=== PATIENT | male | born 1975 | race Caucasian/White ===

== ENCOUNTER 2023-08-03 12:19 | Emergency (ER) | payer MEDICARE, SELFPAY ==
[2023-08-03 12:23] VITALS: BP 144/94
[2023-08-03 12:36] VITALS: BP 141/98
[2023-08-03 12:37] VITALS: BP 141/99
[2023-08-03 13:01] LABS: % Basophils 0.6 % (0-2); % Eosinophils 2.1 % (0-6); % Immature Granulocytes 0.1 % (0-0.5); % Lymphocytes 38.5 % (20.5-51.1); % Monocytes 7.2 % (1.7-9.3); % Neutrophils 51.5 % (42.2-75.2); Absolute Basophils 0.1 10^3/uL (0-0.2); Absolute Eosinophils 0.2 10^3/uL (0-0.7); Absolute Lymphocytes 3.2 10^3/uL (1.2-3.4); Absolute Monocytes 0.6 10^3/uL (0.1-0.6); Absolute Neutrophils 4.2 10^3/uL (1.4-6.5); Hemoglobin 16.4 g/dL (13.0-18.0); Mean Corp Hgb Conc. 34.2 g/dL (33.0-37.0); Mean Corpuscular Hgb 30.6 pg (27.0-31.0); Mean Corpuscular Volume 89.6 fL (80.0-94.0); Mean Platelet Volume 8.8 fL (7.4-10.4); Nucleated Red Blood Cells % 0 % (-); Platelet Count 235 10^3/uL (130-400); Red Blood Cell Count 5.36 10^6/uL (4.70-6.10); Red Cell Dist. Width 13.2 % (11.5-14.5); White Blood Cell Count 8.2 10^3/uL (4.8-10.8)
[2023-08-03 13:16] LABS: ALT (SGPT) 33 U/L (0-50); AST (SGOT) 32 U/L (17-59); Albumin 3.8 g/dl (3.5-5.0); Alkaline Phosphatase 59 U/L (38-126); Blood Urea Nitrogen 10 mg/dl (9-20); Calcium 9.8 mg/dl (8.4-10.2); Carbon Dioxide 27 mmol/L (22-30); Chloride 97 mmol/L (98-107); Glucose 102 mg/dl (70-99); Potassium 4.8 mmol/L (3.5-5.1); Sodium 133 mmol/L (135-145); Total Protein 6.6 g/dl (6.3-8.2); eGFR > 60.00
--- NOTE | 2023-08-03 13:35 | ED.GENMED ---
History of Present Illness
General
Chief Complaint: Dizziness
Time Seen by Provider: 08/03/23 12:40
Travel History
Have you had any contact with someone who has COVID-19?: No
Do you have any symptoms of coronavirus? Fever > 100 degrees, chills, cough, shortness of breath, sore throat, loss of taste or smell, muscle aches, or headache?: No
History of Present Illness
History of Present Illness:
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 Both episodes occurred after getting
up out of bed, lasted mere minutes before resolving. He did have a fall today as a result of the dizziness and hit his head on the bathtub. Denies any current symptoms. Denies any headache, nausea, vomiting, vision changes, or neck pain
Review of Systems
Review of Systems
Allergies reviewed?: Yes
All Other Systems: ROS reviewed and negative except as documented in HPI and ROS
Phy Exam
Physical Exam
Physical Exam:
GEN: Well appearing, NAD, WDWN
HEENT: Oral mucosa moist, no scleral icterus, no nasal congestion
Cardiac: Regular rate
Lung: No respiratory distress, no tachypnea
MSK: No gross deformity or injuries
Skin: Good color, no pallor or jaundice, no rashes
Neuro: AO x3; CN II-XII grossly intact. BUE strength 5/5 in all huber, sensation intact and symmetric. BLE strength 5/5 in all huber, sensation intact and symmetric. No nystagmus visualized
Psych: Calm, cooperative
Course
Orders/Labs/Results
Orders:
Orders
08/03/23 12:44
Complete Blood Count/With Diff Urgent
Comprehensive Metabolic Panel Urgent
08/03/23 12:55
CT Head W/o Iv Contrast Urgent
Comment:
Reason For Exam: dizziness, fall w/ head trauma
Abnormal Lab Results
08/03/23
12:44
Sodium 133 L mmol/L
(135-145)
Chloride 97 L mmol/L
(98-107)
Creatinine 0.6 L mg/dL
(0.7-1.3)
Glucose 102 H mg/dl
(70-99)
08/03/23 12:44
08/03/23 12:44
Vital Signs
Initial and Last Documented VS:
Initial Vital Signs
Temp Pulse Resp BP Pulse Ox
97.9 F 83 18 144/94 95
08/03/23 12:23 08/03/23 12:23 08/03/23 12:23 08/03/23 12:23 08/03/23 12:23
Last Documented Vital Signs
Temp Pulse Resp BP Pulse Ox
97.9 F 78 14 126/96 95
08/03/23 12:23 08/03/23 14:00 08/03/23 14:00 08/03/23 14:00 08/03/23 12:36
MDM/Problems Addressed
MDM/Problems Addressed:
CT of the head was obtained due to the patient's head trauma, this showed no acute cranial abnormalities. Labs are reassuring. I did ambulate the patient and attempted to reproduce his vertigo with rapid head movements and this did not provide any
further symptoms. Likely benign vertigo, discussed supportive care
*Critical Care Note
Total Time (30-74mins, 75-104mins- exclusive of procedures): Not Applicable
ED Attending Note
-
Portions of this chart may have been created with voice recognition software.� Occasional wrong word or��sound alike� substitutions may have occurred due to the inherent limitations of voice recognition software.
Discharge Plan
Departure
Patient Disposition: Home (Routine Discharge)
Date of Disposition: 08/03/23
Time of Disposition: 14:41
Patient with high blood pressure during this ER visit?: No
Discharge Problem:
Vertigo
Instructions: Vertigo (a Type of Dizziness) (DC)
Prescriptions:
New
meclizine 25 mg tablet
25 mg PO TID PRN (Reason: dizziness) Qty: 20 0RF
Referrals:
Eileen Barry PA [Family Provider] -
Interventions
Interventions:
*Risk Screen - Suicide Last Done: 08/03/23 12:29
*General Assessment Last Done: 08/03/23 12:29
*Neglect/Abuse Screening Last Done: 08/03/23 12:29
ED- Fall Risk Assessment Last Done: 08/03/23 12:36
*ED COVID-19 Vaccine History Last Done: 08/03/23 12:36
*Nursing Disposition Last Done: 08/03/23 14:57
ED- Cardiac Assessment Last Done: 08/03/23 12:36
ED- Neurological Assessment Last Done: 08/03/23 12:36
ED-Skin Assessment Last Done: 08/03/23 12:36
Discharge Date and Time
Discharge Date/Time: 08/03/23 14:59
[2023-08-03 14:00] VITALS: BP 126/96
== END 2023-08-03 14:59 | disposition home or self-care (01) ==
LOC: EMR 12:19
PROVIDERS: Emergency Medicine; EMERGENCY PHYSICIAN Student in an Organized Health Care Education/Training Program; FAMILY PHYSICIAN Physician Assistant Medical
DX: R42 Dizziness and giddiness (principal); S09.90XA Unspecified injury of head, initial encounter; W19.XXXA Unspecified fall, initial encounter; Q04.0 Congenital malformations of corpus callosum; G40.909 Epilepsy, unspecified, not intractable, without status epilepticus
CPT/HCPCS: 99284; 70450; 80053; 85025

== ENCOUNTER 2024-01-26 10:32 | Emergency (ER) | payer OTHER, SELFPAY ==
[2024-01-26 10:34] VITALS: BP 139/94
[2024-01-26 11:03] LABS: Hematocrit 46.8 % (39.0-52.0); Hemoglobin 16.3 g/dL (13.0-18.0); Mean Corp Hgb Conc. 34.8 g/dL (33.0-37.0); Mean Corpuscular Hgb 30.2 pg (27.0-31.0); Mean Corpuscular Volume 86.8 fL (80.0-94.0); Mean Platelet Volume 9.3 fL (7.4-10.4); Platelet Count 238 10^3/uL (130-400); Red Blood Cell Count 5.39 10^6/uL (4.70-6.10); Red Cell Dist. Width 13.4 % (11.5-14.5); White Blood Cell Count 8.2 10^3/uL (4.8-10.8)
--- NOTE | 2024-01-26 11:14 | ED.GENMED ---
History of Present Illness
General
Chief Complaint: Dizziness
Time Seen by Provider: 01/26/24 10:40
History of Present Illness
History of Present Illness:
48-year-old male with history of agenesis of the corpus callosum presents to the emergency department for evaluation of dizziness that resulted in a fall with a positive head strike. He denies any loss of consciousness. Reports posterior head
pain, denies vision changes, neck pain, or extremity paresthesias. Still feels lightheaded, denies nausea or vomiting.
Review of Systems
Review of Systems
Allergies reviewed?: Yes
All Other Systems: ROS reviewed and negative except as documented in HPI and ROS
Phy Exam
Physical Exam
Physical Exam:
GEN: Well appearing, NAD, WDWN
HEENT: Mild erythema to the posterior midline scalp with no hematoma or crepitus, oral mucosa moist, no scleral icterus, no nasal congestion
Cardiac: Regular rate
Lung: No respiratory distress, no tachypnea
MSK: No gross deformity or injuries
Skin: Good color, no pallor or jaundice, no rashes
Neuro: AO x3; CN II-XII grossly intact. BUE strength 5/5 in all huber, sensation intact and symmetric. BLE strength 5/5 in all huber, sensation intact and symmetric
Psych: Calm, cooperative
Course
Orders/Labs/Results
Orders:
Orders
01/26/24 10:39
Electrocardiogram (*1) Urgent
Reason for Study: Vertigo / Dizzy
EKG- Treatment ONCE
01/26/24 10:41
CT Head W/o Iv Contrast Urgent
Comment:
Reason For Exam: dizzy, fall w/ head strike
01/26/24 10:43
Basic Metabolic Panel Urgent
Complete Blood Count/No Diff Urgent
Abnormal Lab Results
01/26/24
10:43
Sodium 132 L mmol/L
(135-145)
Glucose 115 H mg/dl
(70-99)
01/26/24 10:43
01/26/24 10:43
Vital Signs
Initial and Last Documented VS:
Initial Vital Signs
Temp Pulse Resp BP Pulse Ox
98.5 F 78 18 139/94 100
01/26/24 10:34 01/26/24 10:34 01/26/24 10:34 01/26/24 10:34 01/26/24 10:34
Last Documented Vital Signs
Temp Pulse Resp BP Pulse Ox
98.5 F 78 18 139/94 100
01/26/24 10:34 01/26/24 10:34 01/26/24 10:34 01/26/24 10:34 01/26/24 10:34
MDM/Problems Addressed
MDM/Problems Addressed:
Workup is unremarkable. Patient is clinically stable with no focal neurologic deficits
*Critical Care Note
Total Time (30-74mins, 75-104mins- exclusive of procedures): Not Applicable
ED Attending Note
-
Portions of this chart may have been created with voice recognition software.� Occasional wrong word or��sound alike� substitutions may have occurred due to the inherent limitations of voice recognition software.
Discharge Plan
Departure
Patient Disposition: Home (Routine Discharge)
Date of Disposition: 01/26/24
Time of Disposition: 11:52
Patient with high blood pressure during this ER visit?: No
Discharge Problem:
CHI (closed head injury)
Instructions: Head injury in adults
Prescriptions:
No Action
meclizine 25 mg tablet
25 mg PO TID PRN (Reason: dizziness) Qty: 20 0RF
Referrals:
Eileen Barry PA [Family Provider] -
Interventions
Interventions:
*Risk Screen - Suicide Last Done: 01/26/24 10:34
*General Assessment Last Done: 01/26/24 10:34
*Neglect/Abuse Screening Last Done: 01/26/24 10:34
*Nursing Disposition Last Done: 01/26/24 12:23
ED- Neurological Assessment Last Done: 01/26/24 10:39
ED Swallowing Screen Last Done: 01/26/24 12:16
Discharge Date and Time
Discharge Date/Time: 01/26/24 12:23
Print Language: ROMANSH
[2024-01-26 11:21] LABS: Blood Urea Nitrogen 11 mg/dl (9-20); Calcium 9.6 mg/dl (8.4-10.2); Carbon Dioxide 23 mmol/L (22-30); Chloride 99 mmol/L (98-107); Glucose 115 mg/dl (70-99); Potassium 4.4 mmol/L (3.5-5.1); Sodium 132 mmol/L (135-145); eGFR > 60.00
== END 2024-01-26 12:23 | disposition home or self-care (01) ==
LOC: EMR 10:32
PROVIDERS: Physician Assistant; EMERGENCY PHYSICIAN Emergency Medicine; FAMILY PHYSICIAN Physician Assistant Medical
DX: S09.90XA Unspecified injury of head, initial encounter (principal); W19.XXXA Unspecified fall, initial encounter
CPT/HCPCS: 99285; 70450; 80048; 85027; 93005

== ENCOUNTER → 2024-08-27 07:29 | Outpatient (REF) | payer OTHER, SELFPAY ==
--- NOTE | 2024-08-27 11:05 | EEG.RPT ---
Electroencephalogram Report
Recording
Date of EE08/27/24
Type of EEG: Routine
Length of EEG recordin minutes
Done with Video Recording: Yes
Patient Status: Outpatient
Recording Conditions: Awake and Drowsy
Hyperventilation Performed: No
Photic Stimulation Performed: Yes
Report
GREATER THAN 1 HOUR EEG REPORT
GREATER THAN 1 HOUR EEG INTERPRETATION:
Moderately-severely abnormal EEG for age due to frequent 2/s medium amplitude spike and wave discharges
CLINICAL CORRELATION:
This study was suggestive of a high-risk for subclinical seizures, generalized in nature. Clinical correlation is advised.
METHODS:
A 21 channel digitized electroencephalogram (EEG) was performed in the [facility]. The 10/20 international system of electrode placement was used with ECG and lateral/vertical eye movements recorded. Video was recorded.
Persyst quantitative EEG analysis performed.
ELECTROENCEPHALOGRAPHER IMPRESSION(S):
Quality of study: Good
Background
Background
Amplitude: Unremarkable
Anterior-Posterior Organization: Good
Maximum: Alpha
Asymmetry: None
Sleep
Drowsiness demonstrated by attenuation of the background rhythm
Hyperventilation
Increased the frequency of spike and-wave discharges listed below.
Photic Stimulation
Failed to activate the record
ECG
Normal sinus rhythm
ABNORMAL EEG Activity
Seen frequently arhythmically were medium-high amplitude left central spikes and occasional afterward slow wave discharges, generalizing, lasting for 2 second intervals.
== END ==
LOC: EEG 07:29
PROVIDERS: ATTENDING PHYSICIAN Psychiatry & Neurology Neurology; FAMILY PHYSICIAN Physician Assistant Medical
DX: G40.309 Generalized idiopathic epilepsy and epileptic syndromes, not intractable, without status epilepticus (principal)
CPT/HCPCS: 95813

== ENCOUNTER 2025-01-22 10:54 | Emergency (ER) | payer OTHER, SELFPAY ==
[2025-01-22 10:56] VITALS: BP 149/97
[2025-01-22 11:04] LABS: Hematocrit 43.8 % (39.0-52.0); Hemoglobin 15.3 g/dL (13.0-18.0); Mean Corp Hgb Conc. 34.9 g/dL (33.0-37.0); Mean Corpuscular Volume 85.7 fL (80.0-94.0); Nucleated Red Blood Cells % 0 % (-); Platelet Count 235 10^3/uL (130-400); Red Cell Dist. Width 13.0 % (11.5-14.5)
[2025-01-22 11:28] LABS: ALT (SGPT) 22 U/L (0-50); AST (SGOT) 23 U/L (17-59); Albumin 4.0 g/dl (3.5-5.0); Alkaline Phosphatase 43 U/L (38-126); Blood Urea Nitrogen 10 mg/dl (9-20); Calcium 9.1 mg/dl (8.4-10.2); Carbon Dioxide 22 mmol/L (22-30); Chloride 99 mmol/L (98-107); Glucose 104 mg/dl (70-99); Potassium 4.1 mmol/L (3.5-5.1); Sodium 127 mmol/L (135-145); Total Protein 7.0 g/dl (6.3-8.2); eGFR > 60.00
[2025-01-22 12:00] VITALS: BP 140/97
[2025-01-22 13:01] VITALS: BP 135/95
--- NOTE | 2025-01-22 13:37 | ED.GENMED ---
History of Present Illness
General
Chief Complaint: Seizure
Source: patient and family
Exam Limitations: none
Time Seen by Provider: 01/22/25 13:06
Nursing documentation reviewed up to this point in time: agreed with
History of Present Illness
History of Present Illness:
see MDM
Phy Exam
Physical Exam
Physical Exam:
GENERAL: Alert , in no apparent distress
HEAD: NCAT
EYE: pupils equal and reactive, some nystagmus; strabismus
NECK: Supple,full rom, nontender
ENT: o/p clr, mmm.
CARDIAC: Regular rate and rhythm . no edema
LUNGS: Clear breath sounds bilaterally, no acute respiratory distress, no wheezes/rales/rhonchi
ABDOMEN: Soft, without focal tenderness, no r/g, no cvat
NEUROLOGICAL: Alert and orientedx 4, cn intact, no facial asymmetry, 5/5 strength in UE/LE, sensation intact, romberg neg, ambulates without assistance, neg pronator drift
SKIN: Warm and dry, skin intact.
MUSCULOSKELETAL: No edema, well perfused.
PSYCH: Normal and appropriate interaction.
Course
Orders/Labs/Results
Orders:
Orders
01/22/25 10:57
CMP [Comprehensive Metabolic Panel] Urgent
Complete Blood Count/With Diff Urgent
01/22/25 14:23
Lamotrigine [Lamictal] 50 mg PO NOW STA
Abnormal Lab Results
01/22/25
10:57
Absolute Monos (auto) 0.7 H 10^3/uL
(0.1-0.6)
Sodium 127 L mmol/L
(135-145)
Creatinine 0.6 L mg/dL
(0.7-1.3)
Glucose 104 H mg/dl
(70-99)
01/22/25 10:57
01/22/25 10:57
Vital Signs
Initial and Last Documented VS:
Initial Vital Signs
Temp Pulse Resp BP Pulse Ox
36.7 C 84 18 149/97 98
01/22/25 10:56 01/22/25 10:56 01/22/25 10:56 01/22/25 10:56 01/22/25 10:56
Last Documented Vital Signs
Temp Pulse Resp BP Pulse Ox
36.7 C 85 15 126/98 98
01/22/25 10:56 01/22/25 14:58 01/22/25 13:21 01/22/25 14:50 01/22/25 14:58
MDM/Problems Addressed
Differential Diagnosis Includes:
see MDM
MDM/Problems Addressed:
Note:
CHIEF COMPLAINT(S)
The patient experienced an aura with right arm shaking suggestive of a seizure.
HISTORY OF PRESENT ILLNESS
The patient 49 y/o M with h/o epilepsy and corpus callosum agenesis and is followed by Dr. Mccrary here for aura and possible mild seizure activity today just [employer];
the patient describes experiencing an aura and subsequent shaking of the right arm. He reports that he usually recognizes when a seizure is impending ('when he has aura, he shakes and he knows its coming').
. He did not fall or experience a full convulsive event. it is very hot outside and mother believes this is a trigger. Additionally, he experienced a more significant seizure 2 days ago, which was his typical tonic clonic 'yelling' seizure,
lasting 1-2 min without prolonged post ictal state.
Despite having a prior significant seizure on Monday, the patient states he usually does not seek medical care after each seizure. Instead, his visit today was prompted by having two episodes close to each other, as he normally experiences seizures
a couple of times per year. He reports no recent fever, cough, or symptoms suggestive of an underlying acute illness. The patient had taken all prescribed medications, including lamotrigine and lacosamide, without missing doses, and he maintains
that he feels well presently.
pt has h/o SIADH and hyponatremia which he did not dislcose;
ADDITIONAL HISTORY OBTAINED FROM SOURCES OTHER THAN THE PATIENT
The patients mother provided additional context regarding his history of seizures and noted no recent head injuries or changes in the seizure pattern until the recent cluster of episodes.
CHRONIC MEDICAL CONDITIONS SIGNIFICANTLY AFFECTING CARE
The patient has a known history of epilepsy, managed with the antiepileptic medications lamotrigine and lacosamide.
REVIEW OF SYSTEMS
- Neurological: Aura with right arm shaking, no loss of consciousness during the recent episode, history of seizures.
- General: Reports feeling good currently, no recent fever or general malaise.
- Head: No recent head injuries, no headache reported.
- Medication Adherence: Confirms consistent use of prescribed antiepileptic medications without missed doses.
PHYSICAL EXAM
- General Appearance: Alert and oriented, no acute distress observed.
- Neurological: No current seizure activity, follows commands, and communicates appropriately.
Nursing notes reviewed and vital signs reviewed.
PROBLEM LIST
Acute:
- Recent aura with seizure-like activity.
Chronic:
- Epilepsy managed with lamotrigine and lacosamide.
PLAN
- Contact the neurologist to discuss potential adjustment of antiepileptic medication dosages.
DIFFERENTIAL DIAGNOSIS
The Differential Diagnosis includes, in no particular order and is not limited to:
1. Epileptic seizure
2. Focal seizure
3. Medication-related side effects or non-compliance
4. Heat-related exacerbation
5. Pseudoseizure
6. Anxiety or panic attacks manifesting as neurologic symptoms
7. Syncope with convulsive episodes
8. Cerebrovascular event
9. Neurological disorder progression
10. Other metabolic causes impacting seizure threshold (e.g., electrolyte imbalance)
hyponatremia
49 y/o M
epilepsy
followed by dr demetra ruiz
on lacosamine and lamictal
here with feeling aura today while at work
had seizure 2 days ago
these are unusual to have back to back prompting mother to bring him in
he feels well now
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
sodium 127
previous sodiums low 130s
no known SAIDH according to mother, no fluid restriction
d/w dr. mccrary who felt that this could be related to medication side effec
trecommended increasing the 50 mg lamictal to total 250 mg rather than 200mg and continuting the lacosamine
ptwill fu with pcp next week regarding sodium
d/w ed attending
*Pulse Oximetry
SaO2: 96
Oxygen Mode of Delivery: Room air
Patient hypoxic: no (98)
*Critical Care Note
Total Time (30-74mins, 75-104mins- exclusive of procedures): Not Applicable
ED Attending Note
-
Portions of this chart may have been created with voice recognition software.� Occasional wrong word or��sound alike� substitutions may have occurred due to the inherent limitations of voice recognition software.
Discharge Plan
Departure
Patient Disposition: Home (Routine Discharge)
Date of Disposition: 01/22/25
Time of Disposition: 14:45
Patient with high blood pressure during this ER visit?: No
Condition: Fair
Covid-19: Not Applicable
Discharge Problem:
Seizure, Chronic hyponatremia
Instructions: Seizures, Adult (DC)
Prescriptions:
No Action
meclizine 25 mg tablet
25 mg PO TID PRN (Reason: dizziness) Qty: 20 0RF
Referrals:
UNKNOWN - PT NOT,INTERVIEWE [Family Provider]
Activity Restrictions/Additional Instructions:
Dr. Mccrary will send a new prescription for 50 mg of lamotrigine into the pharmacy. This will be in addition to his already medications that he is prescribed. So give him this extra dose as well. It should be 250 of the lamotrigine
His sodium was mildly low at 127. Make sure to have his sodium repeated next week by his family doctor. It could be a side effect from his medications or from drinking too much water. Return for any worsening symptoms like repeated seizures,
weakness, fatigue, change in mental status, etc.
Interventions
Interventions:
*Risk Screen - Suicide Last Done: 01/22/25 11:00
*General Assessment Last Done: 01/22/25 11:00
*Neglect/Abuse Screening Last Done: 01/22/25 11:00
*ED- Fall Risk Assessment Last Done: 01/22/25 11:00
*ED COVID-19 Vaccine History Last Done: 01/22/25 11:00
*Nursing Disposition Last Done: 01/22/25 15:00
ED- Cardiac Assessment Last Done: 01/22/25 11:03
ED- Neurological Assessment Last Done: 01/22/25 11:03
ED- Pulmonary Assessment Last Done: 01/22/25 11:03
Discharge Date and Time
Discharge Date/Time: 01/22/25 15:00
Print Language: KHMER
[2025-01-22] MEDS: LAMICTAL 50 MG PO (14:48)
[2025-01-22 14:50] VITALS: BP 126/98
== END 2025-01-22 15:00 | disposition home or self-care (01) ==
LOC: EMR 10:54
PROVIDERS: Physician Assistant; EMERGENCY PHYSICIAN Emergency Medicine
DX: G40.909 Epilepsy, unspecified, not intractable, without status epilepticus (principal); Q04.0 Congenital malformations of corpus callosum; E87.1 Hypo-osmolality and hyponatremia; Z79.899 Other long term (current) drug therapy
CPT/HCPCS: 99283; 80053; 85025

== ENCOUNTER 2025-01-25 09:50 | Emergency (ER) | payer OTHER, SELFPAY ==
[2025-01-25 09:55] VITALS: BP 122/91
--- NOTE | 2025-01-25 10:18 | ED.GENMED ---
History of Present Illness
General
Chief Complaint: Abdominal Symptoms
Source: patient and family
Exam Limitations: none
Time Seen by Provider: 01/25/25 10:06
Nursing documentation reviewed up to this point in time: agreed with
History of Present Illness
History of Present Illness:
49 y/o M with h/o epilepsy and corpus callosum agenesis and is followed by Dr. Heller, GRICELDA w hyponatremia, here for vomiting and dehydration. These symptoms began last night, with the patient experiencing continuous vomiting throughout the night.
The patient has not had diarrhea, fever, or abdominal pain, and is been experiencing dry heaving. The patient was here 3 days ago for seizure and found to be hyponatremic (Na 127). Had his Lamotrigine increased from 200 mg to 250 mg daily.
Past History
Past History
ED Past Medical History: Other (Seizures, chronic hyponatremia, agenesis of corpus callosum) and Other (SIADH)
Social History
Tobacco: Non-smoker
Alcohol: None
Personal: Single
Living: with family
Review of Systems
Review of Systems
Allergies reviewed?: Yes
All Other Systems: ROS reviewed and negative except as documented in HPI and ROS
Constitutional: Reports chills
Respiratory: Denies trouble breathing
Cardiac: Denies chest pain
ABD/GI: Reports nausea and vomiting; Denies abdominal pain or diarrhea
Musculoskeletal: Reports no symptoms
Skin: Reports no symptoms
Phy Exam
Physical Exam
Physical Exam:
GENERAL: No acute distress. A&Ox3.
CONSTITUTIONAL: Afebrile.
EYES: clear, conjunctivae normal
ENMT: moist mucus membranes, Pharynx nl
RESPIRATORY: Regular respirations, nonlabored, lungs clear.
CARDIOVASCULAR: Regular rate and rhythm, no murmurs, no rubs.
GI: Soft, nontender, normal BS
MUSCULOSKELETAL: Moves with ease. Well perfused.
SKIN: Warm, dry, pink
PSYCH: Anxious mood and affect, body trembling versus chills. Well kept, interactive and appropriate
NEUROLOGIC: Awake, alert and oriented. No focal neurological deficits
Course
Orders/Labs/Results
Orders:
Orders
01/25/25 10:17
0.9% Sodium Chloride 1000 ml [Nss] 1,000 ml IV BOLUS
Ondansetron Injectable [Zofran] 4 mg IV NOW STA
01/25/25 10:53
Complete Blood Count/With Diff Urgent
Comprehensive Metabolic Panel Urgent
Lipase Urgent
Abnormal Lab Results
01/25/25
10:53
WBC 14.9 H 10^3/uL
(4.8-10.8)
Abs Immat Gran (auto) 0.1 H 10^3/uL
(0-0.05)
Absolute Neuts (auto) 13.2 H 10^3/uL
(1.4-6.5)
Absolute Lymphs (auto) 1.0 L 10^3/uL
(1.2-3.4)
Neutrophils % 88.4 H %
(42.2-75.2)
Lymphocytes % 7.0 L %
(20.5-51.1)
Sodium 131 L mmol/L
(135-145)
BUN 8 L mg/dl
(9-20)
Glucose 127 H mg/dl
(70-99)
01/25/25 10:53
01/25/25 10:53
Vital Signs
Initial and Last Documented VS:
Initial Vital Signs
Pulse Resp BP Pulse Ox
94 18 122/91 100
01/25/25 09:55 01/25/25 09:55 01/25/25 09:55 01/25/25 09:55
Last Documented Vital Signs
Temp Pulse Resp BP Pulse Ox
98.7 F 77 16 124/84 97
01/25/25 12:00 01/25/25 12:30 01/25/25 12:30 01/25/25 12:30 01/25/25 12:30
MDM/Problems Addressed
Differential Diagnosis Includes:
1. Viral gastroenteritis
2. Medication side effects (from increased lamotrigine)
3. Electrolyte imbalance
4. Dehydration
5. Anxiety or stress reaction
MDM/Problems Addressed:
49 y/o M with h/o epilepsy and corpus callosum agenesis and is followed by Dr. Heller, GRICELDA w hyponatremia, here for vomiting and dehydration. These symptoms began last night, with the patient experiencing continuous vomiting throughout the night.
The patient has not had diarrhea, fever, or abdominal pain, and is been experiencing dry heaving. The patient was here 3 days ago for seizure and found to be hyponatremic (Na 127). Had his Lamotrigine increased from 200 mg to 250 mg daily.
Brother and mother at bedside providing much of the information
CBC: WBC 14.9
CMP: Sodium 131, otherwise normal
Lipase 45
12:15 PM:
After Zofran and IV fluids, patient has had no further retching, he is tolerating p.o. fluids
He appears calm and says he feels much better.
Prescription for Zofran sent to his pharmacy
Instructed to have his blood work specifically WBC and sodium rechecked sometime this week through his PCP.
*Pulse Oximetry
SaO2: 100
Oxygen Mode of Delivery: Room air
Patient hypoxic: no
*Critical Care Note
Total Time (30-74mins, 75-104mins- exclusive of procedures): Not Applicable
ED Attending Note
-
Portions of this chart may have been created with voice recognition software.� Occasional wrong word or��sound alike� substitutions may have occurred due to the inherent limitations of voice recognition software.
Discharge Plan
Departure
Patient Disposition: Home (Routine Discharge)
Date of Disposition: 01/25/25
Time of Disposition: 12:10
Patient with high blood pressure during this ER visit?: No
Condition: Good
Discharge Problem:
Gastritis, Nausea & vomiting
Instructions: Nausea and Vomiting, Adult (DC), Gastritis - Discharge instructions
Prescriptions:
New
ondansetron 4 mg tablet,disintegrating
4 mg PO Q8H PRN (Reason: nausea and vomiting) 3 Days Qty: 10 0RF
No Action
meclizine 25 mg tablet
25 mg PO TID PRN (Reason: dizziness) Qty: 20 0RF
Referrals:
Eileen Barry PA [Family Provider, Family Practice] - Follow up in 2-3 days
Activity Restrictions/Additional Instructions:
As we discussed, stick with a bland diet over the next couple of days until your stomach feels better.
I sent a prescription to your pharmacy for Zofran to use as needed for nausea and vomiting
See your doctor or return here immediately if you continue to vomit despite using the Zofran or if you feel sicker in any way
You may drink 6 to 8 glasses of fluid a day
See your doctor in 2 to 3 days for repeat lab work because your white blood cell count was mildly elevated, most likely from the vomiting and the shaking but the white blood cells and your sodium should be rechecked also as it was slightly low at 131
Interventions
Interventions:
*Risk Screen - Suicide Last Done: 01/25/25 09:55
*General Assessment Last Done: 01/25/25 09:55
*Neglect/Abuse Screening Last Done: 01/25/25 09:55
*ED- Fall Risk Assessment Last Done: 01/25/25 10:57
*Nursing Disposition Last Done: 01/25/25 12:43
YL-Kjjpmg-Zirofjzafs Assessment Last Done: 01/25/25 10:35
Discharge Date and Time
Discharge Date/Time: 01/25/25 12:43
Print Language: [id number]
[2025-01-25] MEDS: NSS 1000 IV (10:54)
[2025-01-25] MEDS: ZOFRAN 4 MG IV (10:54)
[2025-01-25 10:56] VITALS: BMI 24.1
[2025-01-25 11:00] VITALS: BP 135/91
[2025-01-25 11:05] LABS: Hematocrit 45.1 % (39.0-52.0); Hemoglobin 15.5 g/dL (13.0-18.0); Mean Corp Hgb Conc. 34.4 g/dL (33.0-37.0); Mean Corpuscular Volume 86.9 fL (80.0-94.0); Nucleated Red Blood Cells % 0 % (-); Platelet Count 247 10^3/uL (130-400); Red Cell Dist. Width 13.1 % (11.5-14.5)
[2025-01-25 11:32] LABS: ALT (SGPT) 19 U/L (0-50); AST (SGOT) 23 U/L (17-59); Albumin 4.0 g/dl (3.5-5.0); Alkaline Phosphatase 45 U/L (38-126); Blood Urea Nitrogen 8 mg/dl (9-20); Calcium 9.5 mg/dl (8.4-10.2); Carbon Dioxide 24 mmol/L (22-30); Chloride 100 mmol/L (98-107); Estimated Creatinine Clearance 121 ml/min; Glucose 127 mg/dl (70-99); Lipase 45 U/L (23-300); Potassium 4.9 mmol/L (3.5-5.1); Sodium 131 mmol/L (135-145); Total Protein 7.0 g/dl (6.3-8.2); eGFR > 60.00
[2025-01-25 12:30] VITALS: BP 124/84
== END 2025-01-25 12:43 | disposition home or self-care (01) ==
LOC: EMR 09:50
PROVIDERS: Registered Nurse; EMERGENCY PHYSICIAN Emergency Medicine; FAMILY PHYSICIAN Physician Assistant Medical
DX: K29.70 Gastritis, unspecified, without bleeding (principal); R11.2 Nausea with vomiting, unspecified; G40.909 Epilepsy, unspecified, not intractable, without status epilepticus; Q04.0 Congenital malformations of corpus callosum
CPT/HCPCS: 99284; 96374; 96361; 80053; 83690; 85025

== ENCOUNTER 2025-01-26 14:18 | Inpatient (IN) | payer OTHER, SELFPAY ==
[2025-01-26] VITALS (18 sets, daily range): BP systolic 140–179; BP diastolic 81–109; BMI 24.8
--- NOTE | 2025-01-26 09:55 | ED.GENMED ---
History of Present Illness
General
Chief Complaint: Abdominal Symptoms
Source: patient
Time Seen by Provider: 01/26/25 09:47
History of Present Illness
History of Present Illness:
49-year-old male brought to the emergency room for nausea vomiting. Patient has medical history of seizures, agenesis of the corpus callosum. He has some developmental delay. Patient began having symptoms yesterday. Was seen in the emergency
room yesterday for symptoms. He felt better after IV fluids and Zofran. He was discharged home only to have symptoms return. Family states he seems very weak. He fell last night because he was so weak. Patient also complaining of dizziness like
the room is spinning. He has had a previous visit for vertigo. No headache. No abdominal pain per se just vomiting and nausea. Does have some baseline right-sided weakness.
Past History
Past History
ED Past Medical History: Other (Seizures, chronic hyponatremia, agenesis of corpus callosum) and Other (SIADH)
Social History
Tobacco: Non-smoker
Alcohol: None
Personal: Single
Living: with family
Phy Exam
Physical Exam
Physical Exam:
General: Awake, Alert, appears uncomfortable due to nausea
Vitals: Tachycardic
Head: Atraumatic
Eyes: Pupils equal, EOMI
Throat: Airway intact, no exudates, dry mucosa
Neck: Trachea midline
Lungs: Clear and equal b/l
Heart: Regular rate, no murmurs
Abd: Soft, Nontender, No pulsatile mass
Neuro: Baseline mild right arm and leg weakness, otherwise intact
Skin: Warm, dry, no rash
Extremities: pulses equal b/l, no edema
Course
Orders/Labs/Results
Orders:
Orders
01/26/25 09:54
0.9% Sodium Chloride 1000 ml [Nss] 1,000 ml IV BOLUS
Ondansetron Injectable [Zofran] 4 mg IV NOW STA
diazePAM [Valium Injection] 5 mg IV NOW STA
01/26/25 09:55
Electrocardiogram (*1) Urgent
Reason for Study: Abdominal Pain
EKG- Treatment ONCE
01/26/25 10:00
CT Head W/o Iv Contrast Urgent
Comment:
Reason For Exam: vertigo, confusion
01/26/25 10:04
Complete Blood Count/With Diff Urgent
Comprehensive Metabolic Panel Urgent
Lipase Urgent
Magnesium Urgent
01/26/25 13:55
Admit/Transfer Patient As Directed
Co-Sign Provider:
Level of Care: Inpatient admission
Assign to:: Medical/Surgical
Physician / Group: Hospitalist
Diagnosis: Possible seizure, dizziness
Reason for Hospitalization: possible seizure, dizziness
Expected length of stay greater than two midnights?: Yes
ELOS- Estimated Length of Stay in days: 3
I certify the patient meets the requirements for IP care: Yes
01/26/25 13:56
PRN Pain Medication Management As Directed
May give lesser potent ordered pain med per pt: Yes
preference::
Protocol:: Medication orders for pain may be administered in a
manner that supports deferring to patient preference
when the pt is:
- Requesting an ordered lesser potent pain medication.
Least to most potent pain medications are defined
as: acetaminophen < NSAID < tramadol < opioids
(morphine, oxycodone, hydromorphone).
- Requesting a lesser dose of the same medication IF
ORDERED.
- Requesting a less intrusive route of administration
if both routes are prescribed by the provider (PO <
IV).
01/26/25 13:57
Code Status As Directed
Resuscitation Status: Full Code
01/26/25 14:46
Acetaminophen [Tylenol] 650 mg PO Q4HPRN PRN
Meclizine [Antivert] 25 mg PO TIDPRN PRN dizziness
Ondansetron Orally Disint [Zofran Odt (Orally Disintegrating)] 4 mg PO Q8HPRN PRN nausea and vomiting
01/26/25 14:46
Case Management Consult ONCE
Case Management Consult: Discharge Planning
Comment: stroke/tia
DIETARY IP CONSULT Routine
Reason for Consult: stroke/TIA
NEUROLOGY CONSULT Urgent
Consulting Provider: Hardik Garcia
Was physician already notified: Yes
Reason for consult: stroke vs seizure vs vertigo - patient very dizzy
MR Brain Without Contrast Routine
Comment:
Reason For Exam: stroke/TIA
OK for patient to be off Cardiac Monitoring for MRI: Yes
Recent pill cam endoscopy?: No
Activity As Directed
Activity Level: With Assistance
NIH Stroke Scale As Directed
Directions: Per protocol
Comment: every shift and with any change in condition or mental status
Neurological Checks As Directed
Frequency: q4h
Additional Instructions:: q4h x 24h upon admission to the floor, then qshift & with any change in condition
and mental status
Pneumatic Compression Sleeves As Directed
Type: Knee high
Vital Signs As Directed
Frequency: Per unit guidelines
Ot Eval And Treat Routine
Pt Eval And Treat Routine
Treatment: eval gait
Activity Level: With Assistance
Speech Therapy Eval & Treat Routine
DX Deep Vein Thrombosis Video Routine
01/27/25 06:00
Cardiovascular Evaluation IN AM
02/01/25 13:57
Director Of Mechanical Engineering Routine
Abnormal Lab Results
01/26/25
10:04
Absolute Neuts (auto) 7.9 H 10^3/uL
(1.4-6.5)
Neutrophils % 81.4 H %
(42.2-75.2)
Lymphocytes % 13.9 L %
(20.5-51.1)
Sodium 129 L mmol/L
(135-145)
BUN 7 L mg/dl
(9-20)
Creatinine 0.5 L mg/dL
(0.7-1.3)
Glucose 122 H mg/dl
(70-99)
01/26/25 10:04
01/26/25 10:04
Vital Signs
Initial and Last Documented VS:
Initial Vital Signs
Temp Pulse Resp BP Pulse Ox
97.5 F 84 18 170/101 98
01/26/25 09:43 01/26/25 09:43 01/26/25 09:43 01/26/25 09:43 01/26/25 09:43
Last Documented Vital Signs
Temp Pulse Resp BP Pulse Ox
98.1 F 91 18 164/106 96
01/26/25 15:00 01/26/25 15:00 01/26/25 15:00 01/26/25 15:00 01/26/25 15:00
MDM/Problems Addressed
Differential Diagnosis Includes:
Dehydration, electrolyte abnormality, viral gastritis, vertigo from labyrinthitis versus BPPV versus ischemic event
MDM/Problems Addressed:
Patient brought to the emergency room due to persistent nausea vomiting. Patient did endorse feeling dizzy. Labs here are not particularly abnormal. His sodium is 129 but this would not explain any of his symptoms. CT of the head was obtained
which shows no acute abnormality. He persistently complained of dizziness suggesting that what he may be experiencing is acute vertigo. Concern for ischemic event as he is not improving with Valium and IV fluids and Zofran. Will hospitalize him
for further evaluation.
*Radiology
Radiology exam reviewed: radiology read reviewed
*Pulse Oximetry
SaO2: 97
Oxygen Mode of Delivery: Room air
Patient hypoxic: no
*EKG
Interpreted by ED Provider?: Yes
Interpretation: abnormal
Heart Rate: 105
Rate: tachycardiac
Rhythm: sinus tachycardia
Waterfall: normal axis
Interval: normal interval
QRS Pattern: normal QRS
Ischemia: no ischemia
*Asphalt Tamper Interpretation
Rate: tachycardiac
Interpretation: abnormal
Rhythm: sinus tachycardia
*Critical Care Note
Total Time (30-74mins, 75-104mins- exclusive of procedures): Not Applicable
ED Attending Note
-
Portions of this chart may have been created with voice recognition software.� Occasional wrong word or��sound alike� substitutions may have occurred due to the inherent limitations of voice recognition software.
Discharge Plan
Departure
Patient Disposition: Admit
Date of Disposition: 01/26/25
Time of Disposition: 12:45
Admit to: Med/Surg
Presentation/result/management discussed w/ accepting MD/DO: Hospitalist
Condition: Fair
Discharge Problem:
Vertigo, Nausea & vomiting, Ataxia
Interventions
Interventions:
*Risk Screen - Suicide Last Done: 01/26/25 09:43
*General Assessment Last Done: 01/26/25 09:43
*Neglect/Abuse Screening Last Done: 01/26/25 09:43
*ED- Fall Risk Assessment Last Done: 01/26/25 09:52
*ED COVID-19 Vaccine History Last Done: 01/26/25 09:52
*Nursing Disposition Last Done: 01/26/25 14:40
MP-Nryntp-Rspkkiuiec Assessment Last Done: 01/26/25 09:52
Discharge Date and Time
Discharge Date/Time: 01/26/25 14:43
[2025-01-26 10:11] LABS: Hematocrit 43.6 % (39.0-52.0); Hemoglobin 15.1 g/dL (13.0-18.0); Mean Corp Hgb Conc. 34.6 g/dL (33.0-37.0); Mean Corpuscular Volume 86.3 fL (80.0-94.0); Nucleated Red Blood Cells % 0 % (-); Platelet Count 250 10^3/uL (130-400); Red Cell Dist. Width 13.2 % (11.5-14.5)
[2025-01-26] MEDS: NSS 1000 IV (10:18)
[2025-01-26] MEDS: VALIUM INJECTION 5 MG IV (10:19)
[2025-01-26] MEDS: ZOFRAN 4 MG IV (10:19)
[2025-01-26 10:33] LABS: ALT (SGPT) 20 U/L (0-50); AST (SGOT) 23 U/L (17-59); Albumin 4.1 g/dl (3.5-5.0); Alkaline Phosphatase 45 U/L (38-126); Blood Urea Nitrogen 7 mg/dl (9-20); Calcium 9.4 mg/dl (8.4-10.2); Carbon Dioxide 24 mmol/L (22-30); Chloride 100 mmol/L (98-107); Glucose 122 mg/dl (70-99); Lipase 39 U/L (23-300); Magnesium 1.7 mg/dl (1.6-2.3); Potassium 4.0 mmol/L (3.5-5.1); Sodium 129 mmol/L (135-145); Total Protein 7.0 g/dl (6.3-8.2); eGFR > 60.00
--- NOTE | 2025-01-26 13:28 | HPS.HSE ---
Family Physician
-
Family Physician: Eileen Barry
Chief Complaint
-
Dizziness
History of Present Illness
49-year-old man presents with nausea & vomiting. He has medical history of seizures, with agenesis of the corpus callosum, and some developmental delay. He has been having symptoms for a couple of days. He was seen in the emergency room yesterday
for symptoms and felt better after IV fluids and Zofran. He was discharged home and the symptoms returned. Family states he seems very weak. He fell last night. He has been complaining of dizziness and stating 'the room is spinning.' He has had
a previous recent visit for vertigo. No headache. No abdominal pain, but vomiting and nausea. Does have some baseline right-sided weakness. He works at a local [employer].
Medical History
Past Medical History
Past Medical History: Reports Other
Additional Past Medical History:
Seizures,
chronic hyponatremia,
agenesis of corpus callosum
SIADH
epilepsy
intellectual disability
hyperlipidemia
inguinal hernia repair
Past Surgical History: Reports Other
Additional Past Surgical History:
See above
Social History
Tobacco: Non-smoker
Alcohol: None
Drug: None
Personal: Single
Living: With Family
Employment: Employed
Family History
Family History: Not pertinent
Allergies / Home Medications
Allergies reflects when Allergies were last updated in [employer].
Home Medications with original date entered in [employer]
Allergy/Medication List:
Allergies
Allergy/AdvReac Type Severity Reaction Status Date / Time
No Known Allergies Allergy Verified 01/26/25 09:43
Home Medications
meclizine 25 mg tablet 25 mg PO TID PRN dizziness #20 tabs 08/03/23
ondansetron 4 mg disintegrating tablet 4 mg PO Q8H PRN nausea and vomiting 3 days #10 tabs 01/25/25
Review of Systems
-
History Source: Patient
A 12 point ROS was completed and negative except as noted: Yes
Neurological: Reports Dizzy and Weakness
Physical Exam
Vital Signs
Vital Signs
Temp Pulse Resp BP Pulse Ox
97.5 F 107 18 163/109 97
01/26/25 09:43 01/26/25 13:15 01/26/25 11:45 01/26/25 13:15 01/26/25 13:15
Physical Exam
General: Appears in Distress and Slurred Speech
HEENT: Nose Appears Normal and Ears Appear Normal
Respiratory: Clear
Cardiac: S1/S2 and Regular Rhythm
GI: Soft, Non Tender and Non Distended
Skin: Warm and Dry
Neuro: Awake and Alert
Psych: Anxious
Laboratory Results
-
01/26/25 10:04
01/26/25 10:04
Laboratory Results
Total Bilirubin 1.3 mg/dl (0.2-1.3) 01/26/25 10:04
AST 23 U/L (17-59) 01/26/25 10:04
ALT 20 U/L (0-50) 01/26/25 10:04
Alkaline Phosphatase 45 U/L (38-126) 01/26/25 10:04
Lipase 39 U/L (23-300) 01/26/25 10:04
Impression/Plan
-
IMPRESSION:
49 man with possible seizure and dizziness. Na 129 (baseline ~131), multiple recent visits to ED for this problem.
PLAN:
1. Intractable dizziness. Ddx of vertigo, vs viral infection, vs stroke.
Symptomatic management
MRI in am
Neuro consult
2. H/O SIADH and Na of 129.
Will avoid NS for now as that may make the SIADH worse
Will continue fluid restriction and follow Na closely
Full code
VCD for DVTp
[2025-01-26] MEDS: ANTIVERT 25 MG PO (15:38)
--- NOTE | 2025-01-26 20:22 | CON.NEURO ---
Neuro Assessment/Plan
Assessment
vertigo, most consistent with left vestibular neuritis (right beating nystagmus) except a few beats to the left with left gaze
out of window for steroids.
restricted extra ocular movements, symmetric and without diplopia so probably chronic
as exam not entirely consistent, will check brain MRI
epilepsy, agenesis of corpus callosum, continue clobazam, lacosamide, lamotrigine,
Consultation
Order
Date of Consultation: 01/26/25
Requesting Provider: Eliecer Rojas
Reason for Consult: Vertigo
Subjective/Objective
Subjective Data
Date of Service: January 26, 2025
from h&p:
49-year-old man presents with nausea & vomiting. He has medical history of seizures, with agenesis of the corpus callosum, and some developmental delay. He has been having symptoms for a couple of days. He was seen in the emergency room yesterday
for symptoms and felt better after IV fluids and Zofran. He was discharged home and the symptoms returned. Family states he seems very weak. He fell last night. He has been complaining of dizziness and stating 'the room is spinning.' He has had
a previous recent visit for vertigo. No headache. No abdominal pain, but vomiting and nausea. Does have some baseline right-sided weakness. He works at a local [employer].
he denies denies vision loss, double vision, hearing changes, or ear ringing
Objective Data
Vital Signs
Temp Pulse Resp BP Pulse Ox
36.7 C 91 18 164/106 96
01/26/25 15:00 01/26/25 15:00 01/26/25 15:00 01/26/25 15:00 01/26/25 15:00
Lab Results
01/26/25 10:04
01/26/25 10:04
Sodium 129 mmol/L (135-145) L 01/26/25 10:04
Potassium 4.0 mmol/L (3.5-5.1) 01/26/25 10:04
BUN 7 mg/dl (9-20) L 01/26/25 10:04
Glucose 122 mg/dl (70-99) H 01/26/25 10:04
Calcium 9.4 mg/dl (8.4-10.2) 01/26/25 10:04
Patient Allergies
No Known Allergies Allergy (Verified 01/26/25 09:43)
Physical Exam
-
constant right beating nystagmus, except when he looks to the left, a couple beats to the left
lateral gaze is restricted
face symmetric
full strength b/l UE/LE
Medications
-
Active Medications
Generic Name Dose Route Start Last Admin
Trade Name Freq PRN Reason Stop Dose Admin
Acetaminophen 650 mg 01/26/25 14:46
Acetaminophen 325 Mg Tablet PO 02/23/25 14:45
Q4HPRN PRN
NATH, mild pain, or temp >100.4F
Meclizine HCl 25 mg 01/26/25 14:46 01/26/25 15:38
Meclizine 25 Mg Tablet PO 02/23/25 14:45 25 mg
TIDPRN PRN Administration
dizziness
Ondansetron HCl 4 mg 01/26/25 14:46
Ondansetron 4 Mg (Orally-Disintegrating) Tablet PO 02/23/25 14:45
Q8HPRN PRN
nausea and vomiting
Sodium Chloride 0 flush 01/26/25 15:00
Sodium Chloride 0.9% (Flush) Syringe IV 02/23/25 14:59
PER PROTOCOL KRISTAL
Home Medications
�Medication �Instructions �Recorded
meclizine 25 mg tablet 25 mg PO TID PRN dizziness #20 tabs 08/03/23
ondansetron 4 mg disintegrating 4 mg PO Q8H PRN nausea and 01/25/25
tablet vomiting 3 days #10 tabs
clobazam 5 mg oral film (Sympazan) 5 mg PO DAILY 01/26/25
lacosamide 200 mg tablet 200 mg PO BID 01/26/25
lamotrigine 200 mg tablet 200 mg PO BID 01/26/25
lamotrigine 50 mg disintegrating 50 mg PO DAILY 01/26/25
tablet
[2025-01-26] MEDS: VIMPAT 200 MG PO (21:29)
[2025-01-26] MEDS: LAMICTAL 200 MG PO (21:29)
[2025-01-27 00:53] LABS: Glucose - Point of Care 103 mg/dl (70-99)
[2025-01-27] MEDS: ATIVAN 1 MG IV (01:14)
[2025-01-27] MEDS: FLUSH (NSS) 2 FLUSH IV (01:15)
[2025-01-27] MEDS: NSS (PRESERVATIVE FREE) 0.5 ML IV (01:16)
[2025-01-27 01:38] LABS: Hematocrit 41.7 % (39.0-52.0); Hemoglobin 14.4 g/dL (13.0-18.0); Mean Corp Hgb Conc. 34.5 g/dL (33.0-37.0); Mean Corpuscular Volume 86.3 fL (80.0-94.0); Nucleated Red Blood Cells % 0 % (-); Platelet Count 230 10^3/uL (130-400); Red Cell Dist. Width 13.2 % (11.5-14.5); Venous Blood Gas B.E. 1.5 mmol/L (-4 to +4); Venous Blood Gas O2 Sat % 99.8 %
[2025-01-27] MEDS: VALIUM INJECTION 2 MG IV (01:38)
[2025-01-27 01:39] LABS: Venous Blood Gas O2 Therapy ROOM AIR
[2025-01-27 01:45] LABS: COVID-19 Antigen Negative (Negative)
[2025-01-27 01:51] LABS: Blood Urea Nitrogen 8 mg/dl (9-20); Calcium 8.8 mg/dl (8.4-10.2); Carbon Dioxide 22 mmol/L (22-30); Chloride 104 mmol/L (98-107); Estimated Creatinine Clearance > 125 ml/min; Glucose 92 mg/dl (70-99); Potassium 4.1 mmol/L (3.5-5.1); Sodium 132 mmol/L (135-145); eGFR > 60.00
--- NOTE | 2025-01-27 02:00 | W.PN.UPDATE ---
Update Note
Progress Note Update
LICENSED TAX CONSULTANT
for change of mental status and agitation,
-Patient is agitated hallucinating, thinking that someone chasing him while the room is spinning. Patient pointing to every one in the room including his mom and asking who she is? yelling and screaming, trying to get out of the bed.
-Per Staff, patient was able to hold conversation earlier and now its completely change from the beginning of the shift.
-Patient afebrile, vital signs within normal limits and bs is 103.
Patient calm down after 1mg IV ativan and 2mg of IV Valium.
Head CT, CBC, BMP, lactic acid, UA, covid, flu ordered.
Repeated head CT with no changes and no acute abnormalities.
Lab result unremarkable.
Urine sample is contaminated will add straight cath to get sample for another UA.
--- NOTE | 2025-01-27 03:28 | PTCARENOTE ---
Late entry. At 0045 [facility] d/t bed alarm sounding, pt thrashing in bed, confused and yelling. attempted to redirect but pt not following directions. This was a change in mental status from earlier in the evening. unable to complete NIH as pt not
following directions or responding appropriately. pt not able to recognize his mother, keeps saying 'who is that person'. Rapid response called, repeat CT ordered and completed. see rapid response sheet for further documentation and MAR for med
administration.
[2025-01-27 03:53] LABS: Urine Character Slightly Cloudy (Clear)
[2025-01-27 04:01] LABS: Urine Squamous Cell >30 /LPF (Few)
[2025-01-27 04:25] LABS: Urine Red Blood Cell 30-40 /HPF (0-2)
[2025-01-27 04:26] LABS: Urine White Cell 40-50 /HPF (0-5)
[2025-01-27 06:58] LABS: HDL Cholesterol 57 mg/dl; LDL Cholesterol, Calculated 214 mg/dl; Very Low Density Lipoprotein 21 mg/dl (0-30)
[2025-01-27 07:00] VITALS: BP 139/96
--- NOTE | 2025-01-27 08:22 | W.PN.NEURO.1 ---
Today's Communication / Plan
-
Due to change in mental status, check EEG
will check brain MRI
Reduced dosing of lamotrigine back to the dose of 200 mg twice a day although this is unlikely to be the cause for all symptoms
Check lamotrigine level
Start cholesterol-lowering medication after clarity regarding change in mental status
Neuro Assessment/Plan
Assessment
vertigo, most consistent with left vestibular neuritis (right beating nystagmus) except a few beats to the left with left gaze
out of window for steroids.
restricted extra ocular movements, symmetric and without diplopia so probably chronic
as exam not entirely consistent,
epilepsy, agenesis of corpus callosum, continue clobazam, lacosamide, lamotrigine,
Plan
Due to change in mental status, check EEG
will check brain MRI
Reduced dosing of lamotrigine back to the dose of 200 mg twice a day although this is unlikely to be the cause for all symptoms
Check lamotrigine level
Start cholesterol-lowering medication after clarity regarding change in mental status
Will follow
Subjective/Objective
Subjective Data
Date of Service: January 27, 2025
No symptoms as per the patient.
Objective Data
Vital Signs
Temp Pulse Resp BP Pulse Ox
36.7 C 81 18 149/81 99
01/26/25 23:30 01/26/25 23:30 01/26/25 23:30 01/26/25 23:30 01/26/25 23:30
Lab Results
01/27/25 01:28
01/27/25 01:28
Sodium 132 mmol/L (135-145) L 01/27/25 01:28
Potassium 4.1 mmol/L (3.5-5.1) 01/27/25 01:28
BUN 8 mg/dl (9-20) L 01/27/25 01:28
Glucose 92 mg/dl (70-99) 01/27/25 01:28
Calcium 8.8 mg/dl (8.4-10.2) 01/27/25 01:28
LDL Cholesterol, Calc 214 mg/dl 01/27/25 06:02
Patient Allergies
No Known Allergies Allergy (Verified 01/26/25 09:43)
Review of Systems
-
History Source: Patient and Family
Physical Exam
-
General: No Apparent Distress and Appears Stated Age
Eyes: Round OU, [place] Conjunctivae and No Ptosis
HEENT: Anicteric and Moist Mucous Membranes
Neck: Full Range of Motion
Respiratory: No Dyspnea
Cardiac: No JVD
GI: Non-distended
Skin: Unremarkable
Extremities: No Clubbing, No Cyanosis and No Edema
Psych: Negative Intact Judgement/Insight
Extended Neurological Exam
Mood & Affect: Negative Affect Unremarkable (irritable)
Attention Span & Concentration: Awake, Alert, Interactive and Other (mild difficulty with 1step requests)
Memory: Able to Recall (location) and Reduced
Tremor: Hand Tremor Absent and Head Tremor Absent
Speech: Quality Unremarkable and Mildly Reduced Output
Cranial Nerve II: Left Eye: Pupillary Size Unremarkable and Visual Martinez Grossly Intact
Cranial Nerve II: Right Eye: Pupillary Size Unremarkable and Visual Martinez Grossly Intact
Cranial Nerves III, IV, : Extraocular Movement: Grossly Intact and Other (no nystagmus)
Cranial Nerve VII: Facial Symmetry: Reduced (movement on the right)
Cranial Nerve VIII: Hearing: Unremarkable Hearing to Normal Conversational Volume
Muscle Strength, Overall: Spontaneously Moves (all ext)
Muscle Bulk & Tone: Bulk Unremarkable and Increased Tone (on the right)
Pronator Drift: No Drift in Upper Extremities
Deep Tendon Reflexes: Unremarkable Throughout
Touch Sensation: Unremarkable
Coordination: [id number] Testing Unremarkable
Babinski Sign: Absent Bilaterally
Past History
Past History
ED Past Medical History: Hypercholesterolemia, Seizures, Other (chronic hyponatremia, agenesis of corpus callosum low ferritin) and Other (SIADH)
Social History
Tobacco: Non-smoker
Alcohol: None
Personal: Single
Living: with family
Medications
-
Medications:
Generic Name Dose Route Start Last Admin
Trade Name Freq PRN Reason Stop Dose Admin
Acetaminophen 650 mg 01/26/25 14:46
Acetaminophen 325 Mg Tablet PO 02/23/25 14:45
Q4HPRN PRN
NATH, mild pain, or temp >100.4F
Lacosamide 200 mg 01/26/25 21:00 01/26/25 21:29
Lacosamide (Vimpat) 200 Mg Tablet PO 02/23/25 20:59 200 mg
BID KRISTAL Administration
Lamotrigine 200 mg 01/26/25 21:00 01/26/25 21:29
Lamotrigine 100 Mg Tablet PO 02/23/25 20:59 200 mg
BID KRISTAL Administration
Meclizine HCl 25 mg 01/26/25 14:46 01/26/25 15:38
Meclizine 25 Mg Tablet PO 02/23/25 14:45 25 mg
TIDPRN PRN Administration
dizziness
Clobazam [Sympazan] 0 mg 01/27/25 08:00
5 Mg Film Po Daily PO 02/24/25 07:59
DAILY KRISTAL
Ondansetron HCl 4 mg 01/26/25 14:46
Ondansetron 4 Mg (Orally-Disintegrating) Tablet PO 02/23/25 14:45
Q8HPRN PRN
nausea and vomiting
Sodium Chloride 0 flush 01/26/25 15:00 01/27/25 01:15
Sodium Chloride 0.9% (Flush) Syringe IV 02/23/25 14:59 2 flush
PER PROTOCOL KRISTAL Administration
[2025-01-27] MEDS: LAMICTAL 200 MG PO ×2 (08:40→19:57)
[2025-01-27] MEDS: dimenhyDRINATE 50 MG IV (08:40)
[2025-01-27] MEDS: NSS (PRESERVATIVE FREE) 10 ML INJ (08:40)
[2025-01-27] MEDS: VIMPAT 200 MG PO ×2 (08:40→19:57)
--- NOTE | 2025-01-27 09:20 | PTOTSP ---
Speech Language Pathology
Pt seen for clinical bedside swallow evaluation. Mother bedside who reported that pt is typically on regular solids/thin liquids with no difficulty. She also reported significant change in personality at this time, stating he is always pleasant.
Pt agitated during evaluation with minimal participation. P.O. trials of regular solids and thin liquids provided. Slightly prolonged mastication followed by brief oral holding. Initiated swallow with verbal cueing. Trace diffuse oral residue.
Significantly impulsive rate of intake with liquids with brief cough x1. Limited assessment at this time given behaviors.
Recommend:
(1) Continue regular solids/thin liquids as tolerated
(2) Aspiration precautions: full supervision, slow rate, ensure oral cavity clear post P.O. intake, verbally cue to swallow if oral holding noted
(3) Meds as tolerated
(4) STOCKROOM SUPERVISOR to continue to follow. Will consider cognitive-linguistic assessment as able given findings of MRI
[2025-01-27 10:25] LABS: Ferritin 69.8 ng/ml (17.9-464.0)
[2025-01-27] MEDS: ONFI 5 MG PO (12:51)
--- NOTE | 2025-01-27 13:18 | CM ---
CM reviewed chart, patient seen bedside with mother and brother, initial assessment completed. Patient resides with his mother in a multiple story home, two steps to enter, fourteen steps to second floor, bedroom on second floor. Prior to
hospitalization, patient independent with ambulation, no device used. 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 No VN/SNF history. PCP confirmed Eileen Barry, pharmacy [facility] on [address], confirms prescription coverage. CM reviewed therapy
recommendations of Acute Rehab, family agreeable to referral to [facility], will place in [facility]. CM will continue to follow for all discharge planning needs.
Plan; referral to [facility]
--- NOTE | 2025-01-27 13:53 | W.PN.HOSP.TC ---
Today's Communication/Plan
-
Follow-up EEG
Follow-up lamotrigine level
Monitor MSE
Trend BMP
Assessment / Plan
Assessment / Plan
#Intractable dizziness
#Metabolic encephalopathy
#Hallucinations
-Unclear etiology; possibly related to CVA versus multifactorial with vertigo (left vestibular neuritis) and underlying intellectual disability
-CT head on arrival without any acute findings, no signs of ICH; MRI brain without contrast today negative for acute findings
-Neurology following, recommended decreasing lamotrigine and checking levels, also ordered EEG
-Continue with supportive care for now and follow-up EEG
-Continue with meclizine as needed for vertigo
-Avoid unnecessary sedatives, monitor MSE
-Psychiatry consult
#Seizure disorder
#Corpus callosum agenesis
-Likely associated with history of corpus callosum agenesis
-Home regimen includes lacosamide and lamotrigine as well as clobazam
-See above for more detail
#Chronic SIADH
-Likely associated with corpus callosum agenesis (?) versus seizure medications
-Sodium trend here 131-129-132; anticipate baseline near 130
-Trend BMP, consider fluid restriction if worsening
Diet: Regular
DVT prophylaxis: SCDs
CODE STATUS: Full code
Anticipated Discharge: > 48 hours
Subjective/Interval History
-
Date of Service: January 27, 2025
Seen and examined at the bedside. Overnight patient was altered and hallucinating, yelling that he he 'does not know who that woman is' referring to his mother at the bedside. Was given Ativan with some improvement. AFVSS this morning
Patient appears more calm at time of my evaluation. Mother reports that he still was not at his baseline
ROS limited by patient's mental status and baseline ID
Objective Data
-
Vital Signs:
Vital Signs
Temp Pulse Resp BP Pulse Ox
98.1 F 69 18 139/96 98
01/27/25 07:00 01/27/25 07:00 01/27/25 07:00 01/27/25 07:00 01/27/25 07:00
I&O
01/26/25 01/27/25 01/28/25
06:59 06:59 06:59
Output Total 400 / 400
Balance -400 / -400
Review of Systems
-
Unable to obtain full review of systems at this time due to: Acuity
Physical Exam
-
General: Well Nourished, No Apparent Distress and Appears Chronically Ill
HEENT: Normocephalic, Atraumatic, Moist Mucous Membranes and Anicteric
Respiratory: Clear to Auscultation and Non Labored Respirations; Negative Accessory Resp Muscle Use
Cardiac: Regular Rhythm and S1/S2; Negative Murmur, Rub or Gallop
GI: Soft, Nontender, Nondistended and Normal Bowel Sounds
Musculoskeletal: No Clubbing, No Cyanosis and No Edema
Skin: Warm and Dry; Negative Rash
Neuro: Awake, Alert and Other (Nonparticipatory, contracture); Negative Oriented or Tremors
Psych: Calm
Data Reviewed
-
Labs: Labs Reviewed by me and Discussed with Patient
[2025-01-27 15:00] VITALS: BP 143/91
--- NOTE | 2025-01-27 15:31 | CS.PSYCHR ---
Consult Summary - Psychiatry
-
Pt is a 49 yo male with hx fo seizures, agenesis of the corpus callosum, intellectual disability, who presented with nausea & vomiting, change of mental status. Pt was seen in the ED the day prior to admission for similar symptoms and felt better
after IV fluids and Zofran. Pt's brother and mother provided history, reported pt was given an increase of 50 mg of Lamictal, became very weak and fell, had difficulty moving his jaw/talking, lost feeling and movement in his right hand. Pt noted to
have some baseline right-sided weakness. Psychiatry asked to see due to reported visual hallucinations. Upon interview, pt's brother and mother report pt woke earlier and was back to his usual mental state, with no further confusion. Pt resting
in bed, able to move all extremities, making eye contact, stating he feels better. Pt shows no signs of psychosis or agitation.
Pt was seen by Neurology who ordered a brain MRI and EEG, lamotrigine level.
Psych Hx: Intellectual disability. Family denies any other mental health history
SH: lives with family, works 2 days at the [employer], loves his job and is valued there per pt's mother. Brother reports no known substance use
MSE: alert, limited fund of knowledge, not able to answer orientation questions, which is baseline per family, sensorium appears intact. Insight limited
Imp: TME, possibly related to medications, etiology unclear, appears to be resolving
Rec: Symptoms do not appear to be from a psychiatric origin; no psychiatric intervention indicated
Psychiary will sign off
[2025-01-27] MEDS: LIPITOR 80 MG PO (18:09)
[2025-01-27 23:54] VITALS: BP 114/69
[2025-01-28 07:39] LABS: Hematocrit 41.7 % (39.0-52.0); Hemoglobin 13.9 g/dL (13.0-18.0); Mean Corp Hgb Conc. 33.3 g/dL (33.0-37.0); Mean Corpuscular Volume 88.5 fL (80.0-94.0); Nucleated Red Blood Cells % 0 % (-); Platelet Count 232 10^3/uL (130-400); Red Cell Dist. Width 13.1 % (11.5-14.5)
[2025-01-28 07:57] VITALS: BP 140/94
[2025-01-28 08:21] LABS: Blood Urea Nitrogen 11 mg/dl (9-20); Calcium 9.0 mg/dl (8.4-10.2); Carbon Dioxide 26 mmol/L (22-30); Chloride 101 mmol/L (98-107); Estimated Creatinine Clearance 125 ml/min; Glucose 80 mg/dl (70-99); Magnesium 2.1 mg/dl (1.6-2.3); Potassium 4.0 mmol/L (3.5-5.1); Sodium 131 mmol/L (135-145); eGFR > 60.00
--- NOTE | 2025-01-28 09:03 | CM ---
manager of broadcast content reviewed patient's chart and physical therapy are recommending acute rehab, options reviewed and referral sent to [facility], PM&R consulted, and telephonic case manager will follow up with admissions at [facility].
Plan; Await determination from [facility] at [facility] after patient is seen by PM&R.
[2025-01-28] MEDS: ONFI 5 MG PO ×2 (09:58→19:55)
[2025-01-28] MEDS: LAMICTAL 200 MG PO ×2 (09:58→19:55)
[2025-01-28] MEDS: VIMPAT 200 MG PO ×2 (09:58→19:55)
--- NOTE | 2025-01-28 11:55 | W.PN.NEURO.1 ---
Today's Communication / Plan
-
Increase clobazam from 5 mg daily to dosing of 5 mg in the a.m. and 2.5 mg at bedtime in hopes of further reducing seizure risk
Reduced dosing of lamotrigine back to the dose of 200 mg twice a day although this is unlikely to be the cause for all symptoms
Await lamotrigine level
Start cholesterol-lowering medication after clarity regarding change in mental status
Neuro Assessment/Plan
Assessment
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
EEG demonstrated mild slowing and no focal abnormalities
Patient presented with a sense of vertigo, change in mental status with a history of epilepsy, agenesis of corpus callosum
Unclear if all symptoms were due to mildly elevated lamotrigine level, however, patient is improved after multiple days back and his prior dosing of lamotrigine
Plan
Increase clobazam from 5 mg daily to dosing of 5 mg in the a.m. and 2.5 mg at bedtime in hopes of further reducing seizure risk
Reduced dosing of lamotrigine back to the dose of 200 mg twice a day although this is unlikely to be the cause for all symptoms
Await lamotrigine level
Start cholesterol-lowering medication after clarity regarding change in mental status
Will follow
Subjective/Objective
Subjective Data
Date of Service: January 28, 2025
Patient reports no significant issues currently.
Objective Data
Vital Signs
Temp Pulse Resp BP Pulse Ox
37.1 C 73 18 140/94 99
01/28/25 07:57 01/28/25 07:57 01/28/25 07:57 01/28/25 07:57 01/28/25 07:57
Lab Results
01/28/25 07:16
01/28/25 07:16
Sodium 131 mmol/L (135-145) L 01/28/25 07:16
Potassium 4.0 mmol/L (3.5-5.1) 01/28/25 07:16
BUN 11 mg/dl (9-20) 01/28/25 07:16
Glucose 80 mg/dl (70-99) 01/28/25 07:16
Calcium 9.0 mg/dl (8.4-10.2) 01/28/25 07:16
LDL Cholesterol, Calc 214 mg/dl 01/27/25 06:02
Patient Allergies
No Known Allergies Allergy (Verified 01/26/25 09:43)
Review of Systems
-
History Source: Patient
All other systems: Reviewed and negative
Neuro: Negative Dizzy or Headache
Physical Exam
-
General: No Apparent Distress and Appears Stated Age
Eyes: Round OU, Antonito Conjunctivae and No Ptosis
HEENT: Anicteric and Moist Mucous Membranes
Neck: Full Range of Motion
Respiratory: No Dyspnea
Cardiac: No JVD
GI: Non-distended
Skin: Unremarkable
Extremities: No Clubbing, No Cyanosis and No Edema
Psych: Intact Judgement/Insight
Extended Neurological Exam
Mood & Affect: Mood Unremarkable and Affect Unremarkable (irritable)
Attention Span & Concentration: Awake, Alert and Interactive
Memory: Able to Recall
Tremor: Hand Tremor Absent and Head Tremor Absent
Speech: Quality Unremarkable and Mildly Reduced Output
Cranial Nerve II: Left Eye: Pupillary Size Unremarkable and Visual Martinez Grossly Intact
Cranial Nerve II: Right Eye: Pupillary Size Unremarkable and Visual Martinez Grossly Intact
Cranial Nerves III, IV, : Extraocular Movement: Grossly Intact
Cranial Nerve VII: Facial Symmetry: Reduced (movement on the right)
Cranial Nerve VIII: Hearing: Unremarkable Hearing to Normal Conversational Volume
Muscle Strength, Overall: Spontaneously Moves (all ext)
Muscle Bulk & Tone: Bulk Unremarkable and Tone Unremarkable
Touch Sensation: Unremarkable
Coordination: Reaches for Objects without Difficulty
Data Reviewed
-
EEG: Report Reviewed
Labs: Report Reviewed
Reviewed with: Physician, Patient and Family
Old Records: Summarized
Past History
Past History
ED Past Medical History: Hypercholesterolemia, Seizures, Other (chronic hyponatremia, agenesis of corpus callosum, low ferritin) and Other (SIADH)
ED Past Surgical History: Other (Inguinal herniorrhaphy)
Social History
Tobacco: Non-smoker
Alcohol: None
Personal: Single
Living: with family
Employment: Employed
Family History
Family History: Other (Reviewed and noncontributory)
Medications
-
Medications:
Generic Name Dose Route Start Last Admin
Trade Name Freq PRN Reason Stop Dose Admin
Acetaminophen 650 mg 01/26/25 14:46
Acetaminophen 325 Mg Tablet PO 02/23/25 14:45
Q4HPRN PRN
NATH, mild pain, or temp >100.4F
Atorvastatin Calcium 80 mg 01/27/25 18:00 01/27/25 18:09
Atorvastatin (Lipitor) 80 Mg Tablet PO 02/24/25 17:59 80 mg
QPM KRISTAL Administration
Clobazam 5 mg 01/27/25 10:00 01/28/25 09:58
Clobazam 10 Mg (Non-Form) Tablet PO 02/24/25 09:59 5 mg
DAILY KRISTAL Administration
Lacosamide 200 mg 01/26/25 21:00 01/28/25 09:58
Lacosamide (Vimpat) 200 Mg Tablet PO 02/23/25 20:59 200 mg
BID KRISTAL Administration
Lamotrigine 200 mg 01/26/25 21:00 01/28/25 09:58
Lamotrigine 100 Mg Tablet PO 02/23/25 20:59 200 mg
BID KRISTAL Administration
Meclizine HCl 25 mg 01/26/25 14:46 01/26/25 15:38
Meclizine 25 Mg Tablet PO 02/23/25 14:45 25 mg
TIDPRN PRN Administration
dizziness
Ondansetron HCl 4 mg 01/26/25 14:46
Ondansetron 4 Mg (Orally-Disintegrating) Tablet PO 02/23/25 14:45
Q8HPRN PRN
nausea and vomiting
Sodium Chloride 0 flush 01/26/25 15:00 01/27/25 01:15
Sodium Chloride 0.9% (Flush) Syringe IV 02/23/25 14:59 2 flush
PER PROTOCOL KRISTAL Administration
--- NOTE | 2025-01-28 12:00 | W.PN.HOSP.TC ---
Today's Communication/Plan
-
Follow-up EEG
Follow-up lamotrigine level
Continue meclizine and current AED regimen
Monitor MSE
Physiatry eval
Assessment / Plan
Assessment / Plan
#Intractable dizziness
#Metabolic encephalopathy
#Hallucinations
-Unclear etiology; possibly related to CVA versus multifactorial with vertigo (left vestibular neuritis) and underlying intellectual disability
-CT head on arrival without any acute findings, no signs of ICH; MRI brain without contrast today negative for acute findings
-Neurology following, recommended decreasing lamotrigine and checking levels, also ordered EEG
-Continue with supportive care for now and follow-up EEG
-Continue with meclizine as needed for vertigo
-Avoid unnecessary sedatives, monitor MSE
#Seizure disorder
#Corpus callosum agenesis
-Likely associated with history of corpus callosum agenesis
-Home regimen includes lacosamide and lamotrigine as well as clobazam
-See above for more detail
#Chronic SIADH
-Likely associated with corpus callosum agenesis (?) versus seizure medications
-Sodium trend here 131-129-132; anticipate baseline near 130
-Trend BMP, consider fluid restriction if worsening
Diet: Regular
DVT prophylaxis: SCDs
CODE STATUS: Full code
Anticipated Discharge: Within 24 hours
Subjective/Interval History
-
Date of Service: January 28, 2025
Seen and examined at the bedside. No acute events reported overnight. AFVSS this morning
Mentation improved. Patient participating in conversation, his mother at bedside states he seems back to baseline
MRI negative, EEG read pending. Denies any new complaints
Objective Data
-
Labs:
Laboratory Results
01/28/25
07:16
WBC 8.7
Hgb 13.9
Hct 41.7
Plt Count 232
Sodium 131 L
Potassium 4.0
Chloride 101
Carbon Dioxide 26
BUN 11
Creatinine 0.7
Glucose 80
Calcium 9.0
Vital Signs:
Vital Signs
Temp Pulse Resp BP Pulse Ox
98.7 F 73 18 140/94 99
01/28/25 07:57 01/28/25 07:57 01/28/25 07:57 01/28/25 07:57 01/28/25 07:57
I&O
01/27/25 01/28/25 01/29/25
06:59 06:59 06:59
Intake Total 960 / 960
Output Total 400 / 400 300 / 300
Balance -400 / -400 660 / 660
Review of Systems
-
History Source: Patient
All other systems: Reviewed and negative
Physical Exam
-
General: Well Nourished, No Apparent Distress and Appears Chronically Ill
HEENT: Normocephalic, Atraumatic, Moist Mucous Membranes and Anicteric
Respiratory: Clear to Auscultation and Non Labored Respirations; Negative Accessory Resp Muscle Use
Cardiac: Regular Rhythm and S1/S2; Negative Murmur, Rub or Gallop
GI: Soft, Nontender, Nondistended and Normal Bowel Sounds
Musculoskeletal: No Clubbing, No Cyanosis and No Edema
Skin: Warm and Dry; Negative Rash
Neuro: AO x 3, Nonfocal/Grossly Intact and Central Nerve's Intact
Psych: Calm
Data Reviewed
-
Labs: Labs Reviewed by me, Discussed with Patient and Discussed with Family
--- NOTE | 2025-01-28 13:29 | EEG.RPT ---
Electroencephalogram Report
Recording
Date of EE01/28/25
Type of EEG: Routine
Length of EEG recordin minutes
Done with Video Recording: Yes
Patient Status: Inpatient
Recording Conditions: Awake and Drowsy
Hyperventilation Performed: No
Photic Stimulation Performed: Yes
Report
GREATER THAN 1 HOUR EEG REPORT
EEG INTERPRETATION:
Minimally abnormal EEG for age due to diffuse bihemispheric slowing
CLINICAL CORRELATION:
This study was suggestive of diffuse cortical dysfunction without focal abnormality. No seizures were recorded.
Clinical correlation is advised.
METHODS:
A 21 channel digitized electroencephalogram (EEG) was performed at the bedside. The 10/20 international system of electrode placement was used with ECG and lateral/vertical eye movements recorded. Persyst QEEG monitoring was performed.
QUALITY OF STUDY:
Good
ELECTROENCEPHALOGRAPHER IMPRESSION(S):
Background
There was an amplitude fairly well organized anterior-posterior voltage gradient of theta frequency
There were no significant asymmetries of background activity noted.
Sleep
Drowsiness present
Photic Stimulation
Failed to activate the record.
ECG
Normal sinus rhythm
--- NOTE | 2025-01-28 14:22 | CON.MD ---
Documented by User: Yaneli Vega MD, Resident 01/28/25 18:06
Consultation - Medical
-
Referring Provider:��Harry Glass
Chief Complaint:��Ataxia, fall
�
History of Present Illness:��49-year-old man with a PMH notable for corpus callosum agenesis, seizures, and developmental delay, who presents with nausea & vomiting. Per brother, in the ED he was noted to have jaw immobility, aphasia, and right arm
weakness, so stroke was suspected.
He has been having symptoms for a couple of days. He was seen in the emergency room 1 day before returning for dizziness, n/v and felt better after IV fluids and Zofran. He was discharged home and the symptoms returned. Family states he seems
very weak. He fell last night. He has been complaining of dizziness and stating 'the room is spinning.' He has had a previous recent visit for vertigo. No headache. No abdominal pain, but vomiting and nausea. Does have some baseline right-sided
weakness. He works at [employer].
�
Past Medical History:�Corpus callosum agenesis, seizures/epilepsy, SIADH/chronic hyponatremia, intellectual disability, hyperlipidemia
Procedure History:�Inguinal hernia repair
Family History:�Nonpertinent
�
Social History:�
Functional Level Premorbidly: Independent with all activities�
Functional Level Currently:��
OT and PT recommend acute rehab
OT 8.4.25: Mod to max assist of 2 for bed mobility, transfers, functional mobility. PLOF independent with ADLs
PT 8.4.25: Mod max assist of 2 for all functional abilities.
Pending medical workup
�
Tobacco: Denies�
Alcohol: Denies�
Drug use: Denies�
�
Lives with:�Mom
24-hour assistance available:�Yes
Number of floors:�2
# steps to enter:�2
# steps to second floor:�12
Potential First floor set up:�Yes
Driving:�No
Occupation:�[employer]
��
�
Allergies:��
�
Allergy/AdvReac Type Severity Reaction Status Date / Time
No Known Allergies Allergy Verified 01/26/25 09:43
Review of Systems:�
Constitutional: (x) Normal _�
Eye: (x) Normal _�
Ear/Nose/Throat: (x) Normal _�
Respiratory: (x) Normal _�
Cardiovascular: (x) Normal _�
Gastrointestinal: (x) Normal _�
Genitourinary: (x) Normal _�
Musculoskeletal: (x) Normal _�
Integumentary: (x) Normal _�
Neurologic: (x) Normal _�
Psychiatric: (x) Normal _�
Endocrine: (x) Normal _�
Hematologic/Lymphatic: (x) Normal _�
Allergic/Immunologic: (x) Normal _�
�
Medications:�
�
Generic Name Dose Route Start Last Admin
Trade Name Freq PRN Reason Stop Dose Admin
Acetaminophen 650 mg 01/26/25 14:46
Acetaminophen 325 Mg Tablet PO 02/23/25 14:45
Q4HPRN PRN
NATH, mild pain, or temp >100.4F
Atorvastatin Calcium 80 mg 01/27/25 18:00 01/27/25 18:09
Atorvastatin (Lipitor) 80 Mg Tablet PO 02/24/25 17:59 80 mg
QPM KRISTAL Administration
Clobazam 5 mg 01/28/25 20:00
Clobazam 10 Mg (Non-Form) Tablet PO 02/25/25 19:59
BID KRISTAL
Lacosamide 200 mg 01/26/25 21:00 01/28/25 09:58
Lacosamide (Vimpat) 200 Mg Tablet PO 02/23/25 20:59 200 mg
BID KRISTAL Administration
Lamotrigine 200 mg 01/26/25 21:00 01/28/25 09:58
Lamotrigine 100 Mg Tablet PO 02/23/25 20:59 200 mg
BID KRISTAL Administration
Meclizine HCl 25 mg 01/26/25 14:46 01/26/25 15:38
Meclizine 25 Mg Tablet PO 02/23/25 14:45 25 mg
TIDPRN PRN Administration
dizziness
Ondansetron HCl 4 mg 01/26/25 14:46
Ondansetron 4 Mg (Orally-Disintegrating) Tablet PO 02/23/25 14:45
Q8HPRN PRN
nausea and vomiting
Sodium Chloride 0 flush 01/26/25 15:00 01/27/25 01:15
Sodium Chloride 0.9% (Flush) Syringe IV 02/23/25 14:59 2 flush
PER PROTOCOL KRISTAL Administration
Vitals:�
�
Temp Pulse Resp BP Pulse Ox
98.7 F 73 18 140/94 99
01/28/25 07:57 01/28/25 07:57 01/28/25 07:57 01/28/25 07:57 01/28/25 07:57
Height 5 ft 9 in
Actual Weight 76.158 kg
Body Mass Index (BMI) 24.8
Physical Exam:�
General Appearance/Observation: Well-developed, well-nourished individual in no apparent distress.�
Pain/Comfort Assessment: Denies��
Mood/Affect: Appropriate�
�
Integumentary/Operative Site:�
�� Pressure Ulcer Evaluation: absent over heels.��
�� Other Type of Wound: absent�
�
Eyes: Conjunctiva/Lids: normal Pupils: pupils equal round and reactive to light and Accommodation�
Ears/Nose/Throat: oral mucosa moist,� throat clear. Lips/Teeth/Gums: normal�
Neck: No muscle spasm or tenderness�
Cardiovascular: Heart: regular, no murmur�
Pulses: dorsalis pedis 2+ bilaterally�
Respiratory: Respiratory Effort/Chest Expansion: normal Auscultation: Clear to auscultation bilaterally�
Gastrointestinal: abdomen not tender, no distension, normal abdominal bowel sounds�
Genitourinary: No Castro�
Rectal Exam: Deferred�
Extremities: Edema: None Cyanosis: None Trophic changes: None�
�
�
Neurology Exam:�
Orientation: Alert, Oriented to self, Time, Place�
Memory: Intact immediately, consistent with baseline
Higher cortical function�
Repetition: Intact�
Comprehension: Intact�
�
Cranial Nerves:�
�� CNII: Pupillary light reflex: Intact��� Visual Field: Intact�
�� CN III, IV, : Extraocular muscles: Intact��
�� CN V: Facial Sensation at Forehead: Intact, Maxilla: Intact, Mandible: Intact �
�� CN VII: Facial movement: Symmetric�
�� CN VIII: Hearing: Normal�
�� CN IX/X: Speech & swallow: Normal, Position of Uvula: Midline�
�� CN XI: Shoulder shrug: Symmetric�
�� CN XII: Tongue protrusion: Midline�
�
Sensory:�
�� Light touch: Intact in bilateral upper and lower extremities��
�
Reflexes:�
�� Biceps: 2+ bilaterally�
�� Brachioradialis: 2+ bilaterally�
�� Triceps: 2+ bilaterally�
�� Patellar: 2+ bilaterally�
�� Achilles: 2+ bilaterally�
�� Babinski: Down going bilaterally�
�� Balwinder: Negative bilaterally�
Cerebellar: Dysmetria/Ataxia: None�
�
Musculoskeletal:�
�
Motor: (Manual muscle scale 0-5)�
Muscle� SA� EF� WE� EE� FF� FA� HF� KE� DF� EHL� PF�
Right��� 5� 5� 5� 5� 5� 5� 5� 5� 5� 5� 5�
Left� 5� 5� 5� 5� 5� 5� 5� 5� 5� 5� 5�
�
Tone: Normal in all extremities�
Range of Motion: Passively within normal limits in all extremities�
�
Lab Results�
��
Diagnostic Results: as per HPI�
Brain MRI 01/27/25
No MRI evidence for an acute infarct. Chronic developmental findings, as detailed above.
Head CT 01/27/25
No evidence of acute intracranial abnormality.
Assessment�
49-year-old male with PMH notable for seizures associated with corpus callosum agenesis, presenting with ataxia, dizziness, nausea/vomiting. His symptoms have resolved.
Plan��
PM&R PT/OT to increase independence with ADLs, improve balance, coordination, endurance, strength, mobility, community reintegration, decreased burden of care on others and family education.�
�
Dysphagia: speech evaluation, oral care protocol, chlorhexidine rinse after meals and HS, aspiration precautions.� Advance diet as tolerated.�
Dysarthria: speech evaluation�
Aphasia: speech evaluation��
Spasticity:� Adjust medications as needed.� Continue range of motion exercises and stretching program.���
Seizures: Continue Keppra monitor seizures, seizure precautions�
�
Falls: Likely multifactorial�
Vitamin D deficiency: weekly replacement Vitamin D2.�
Check orthostatics.�
�
HLD: Statin�
�
Skin: monitor for pressure sores/rashes/lesions.�
Pain: acetaminophen or oxycodone as needed.�
Bowel: Colace and Senna, PRN bisacodyl.�
Bladder: Time void, PVRs, PRN straight cath.�
GI Prophylaxis: Pantoprazole�
DVT Prophylaxis: Note chemoprophylaxis (or if not SCDs and when chemotherapy prophylaxis can start).�
Pulmonary: Incentive spirometry�
Safety: Continue to reinforce assistance with all transfers.�
Code Status:� Full code
Dispo (date/plan/equipment needs): Home with family care.� Social history reviewed.�
�
Functional and Medical Goals: Modified Independent with ADL�s, ambulation, transfers�
�
SUMMARY�
�
Discharge Destination: Home�
�
Summary of recommendations:�
- Discharge Destination: Home�
- Pending medical workup
- Patient works and is Mod I at baseline.
- Based on PT/OT eval yesterday, patient would be candidate for acute rehab. Based on family's input of patient having returned to baseline, recommend re-evaluation by PT/OT. Since he has supervision at mom by his mom, he may be able to go home with
home/outpatient therapy.
�
Will continue to follow patient.�
�
Thank you for allowing me to care for your patient. Please contact me with any questions or concerns.�
�
This note was dictated using a voice recognition system. 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 If you believe there are any discrepancies, please notify our office.�
�
Consultation
-
Date/Time Consultation Requested: 01/28/25
Date/Time Consultation Performed: 01/28/25
Requesting Provider: Harry Glass
Performing Provider: Alverto Strauss
Reason for Consultation: Ataxia

Documented by User: Alverto Gomes MD 01/28/25 23:35
Consultation - Medical
-
Referring Provider:��Harry Glass
Chief Complaint:��Ataxia, fall
�
History of Present Illness:��49-year-old right-handed man with a PMH notable for corpus callosum agenesis, seizures, and developmental delay, who presents with nausea & vomiting. Per brother, in the ED he was noted to have jaw immobility, aphasia,
and right arm weakness, so stroke was suspected.
He had been having symptoms for a couple of days. He was seen in the emergency room 1 day before returning for dizziness, n/v and felt better after IV fluids and Zofran. He was discharged home and the symptoms returned. Family stated he seemed
very weak. He fell the night before arrival. He had been complaining of dizziness and stating 'the room is spinning.' He has had a previous recent visit for vertigo. No headache. No abdominal pain, but vomiting and nausea. Does have some
baseline right-sided weakness. He works at [email or web address], a local [employer]. Patient's brother said Fredo was very nauseous and not feeling well, today Fredo says he appears to be at his baseline and doing much better. Patient states that he feels
like himself, no further nausea or dizziness or vomiting. He is hoping to be able to go home tomorrow.
�
Past Medical History:�Corpus callosum agenesis, seizures/epilepsy, SIADH/chronic hyponatremia, intellectual disability, hyperlipidemia
Procedure History:�Inguinal hernia repair
Family History:�Nonpertinent
�
Social History:�
Functional Level Premorbidly: Independent with all activities�
Functional Level Currently:��OT 01.27.25: Mod to max assist of 2 for bed mobility, transfers, functional mobility. PLOF independent with ADLs. PT 01.27.25: Mod max assist of 2 for all functional abilities. PT evaluation 01/28/2025 with supervision sit
to stand and min assist stand to sit. Ambulating 50 feet in the room with min assist with 3-4 losses of balance. PT suggesting home health.
�
Tobacco: Denies�
Alcohol: Denies�
Drug use: Denies�
�
Lives with:�Mom
24-hour assistance available:�Yes
Number of floors:�2
# steps to enter:�2
# steps to second floor:�12
Potential First floor set up:�Yes
Driving:�No, his brother drives him
Occupation:�[employer], [employer]
��
�
Allergies:��
�
Allergy/AdvReac Type Severity Reaction Status Date / Time
No Known Allergies Allergy Verified 01/26/25 09:43
Review of Systems:�Patient denies any current concerns.
Constitutional: (x) Normal _�
Eye: (x) Normal _�
Ear/Nose/Throat: (x) Normal _�
Respiratory: (x) Normal _�
Cardiovascular: (x) Normal _�
Gastrointestinal: (x) Normal _�
Genitourinary: (x) Normal _�
Musculoskeletal: (x) Normal _�
Integumentary: (x) Normal _�
Neurologic: (x) Normal _�
Psychiatric: (x) Normal _�
Endocrine: (x) Normal _�
Hematologic/Lymphatic: (x) Normal _�
Allergic/Immunologic: (x) Normal _�
�
Medications:�
�
Generic Name Dose Route Start Last Admin
Trade Name Freq PRN Reason Stop Dose Admin
Acetaminophen 650 mg 01/26/25 14:46
Acetaminophen 325 Mg Tablet PO 02/23/25 14:45
Q4HPRN PRN
NATH, mild pain, or temp >100.4F
Atorvastatin Calcium 80 mg 01/27/25 18:00 01/27/25 18:09
Atorvastatin (Lipitor) 80 Mg Tablet PO 02/24/25 17:59 80 mg
QPM KRISTAL Administration
Clobazam 5 mg 01/28/25 20:00
Clobazam 10 Mg (Non-Form) Tablet PO 02/25/25 19:59
BID KRISTAL
Lacosamide 200 mg 01/26/25 21:00 01/28/25 09:58
Lacosamide (Vimpat) 200 Mg Tablet PO 02/23/25 20:59 200 mg
BID KRISTAL Administration
Lamotrigine 200 mg 01/26/25 21:00 01/28/25 09:58
Lamotrigine 100 Mg Tablet PO 02/23/25 20:59 200 mg
BID KRISTAL Administration
Meclizine HCl 25 mg 01/26/25 14:46 01/26/25 15:38
Meclizine 25 Mg Tablet PO 02/23/25 14:45 25 mg
TIDPRN PRN Administration
dizziness
Ondansetron HCl 4 mg 01/26/25 14:46
Ondansetron 4 Mg (Orally-Disintegrating) Tablet PO 02/23/25 14:45
Q8HPRN PRN
nausea and vomiting
Sodium Chloride 0 flush 01/26/25 15:00 01/27/25 01:15
Sodium Chloride 0.9% (Flush) Syringe IV 08/31/25 14:59 2 flush
PER PROTOCOL KRISTAL Administration
Vitals:�
�
Temp Pulse Resp BP Pulse Ox
98.7 F 73 18 140/94 99
01/28/25 07:57 01/28/25 07:57 01/28/25 07:57 01/28/25 07:57 01/28/25 07:57
Height 5 ft 9 in
Actual Weight 76.158 kg
Body Mass Index (BMI) 24.8
Physical Exam:�
General Appearance/Observation: Well-nourished male in no apparent distress.�
Pain/Comfort Assessment: Denies��
Mood/Affect: Appropriate�
�
Integumentary/Operative Site:�
�� Pressure Ulcer Evaluation: absent over heels.��
�
Eyes: Conjunctiva/Lids: normal Pupils: pupils equal round and reactive to light and Accommodation�
Ears/Nose/Throat: oral mucosa moist,� throat clear. Lips/Teeth/Gums: normal�
Neck: No muscle spasm or tenderness�
Cardiovascular: Heart: regular, no murmur�
Pulses: dorsalis pedis 2+ bilaterally�
Respiratory: Respiratory Effort/Chest Expansion: normal Auscultation: Clear to auscultation bilaterally�
Gastrointestinal: abdomen not tender, no distension, normal abdominal bowel sounds�
Genitourinary: No Castro�
Rectal Exam: Deferred�
Extremities: Edema: None Cyanosis: None Trophic changes: None�
-Does have decreased muscle bulk in the right upper and lower extremity compared to the left
�
Neurology Exam:�
Orientation: Alert, Oriented to self, Time, Place�
Memory: Intact immediately, consistent with baseline
Higher cortical function�
Repetition: Intact�
Comprehension: Intact�
�
Cranial Nerves:�
�� CNII: Pupillary light reflex: Intact��� Visual Field: Intact�
�� CN III, IV, : Extraocular muscles: Intact��
�� CN V: Facial Sensation at Forehead: Intact, Maxilla: Intact, Mandible: Intact �
�� CN VII: Facial movement: Symmetric�
�� CN VIII: Hearing: Normal�
�� CN IX/X: Speech & swallow: Normal, Position of Uvula: Midline�
�� CN XI: Shoulder shrug: Symmetric�
�� CN XII: Tongue protrusion: Midline�
�
Sensory:�
�� Light touch: Intact in bilateral upper and lower extremities��
�
Reflexes:�
�� Biceps: 2+ bilaterally�
�� Brachioradialis: 2+ bilaterally�
�� Triceps: 2+ bilaterally�
�� Patellar: 2+ bilaterally�
�� Achilles: 2+ bilaterally�
�� Babinski: Down going bilaterally�
�� Balwinder: Negative bilaterally�
Cerebellar: Dysmetria/Ataxia: No dysmetria but does take more time to do [id number]
Musculoskeletal:�Motor: (Manual muscle scale 0-5)�
Muscle� SA� EF� WE� EE� FF� FA� HF� KE� DF� EHL� PF�
Right��� 5� 5� 5� 5� 5� 5� 4� 5� 5� 5� 5�
Left� 5� 5� 5� 5� 5� 5� 4� 5� 5� 5� 5�
�
Tone: Normal in all extremities�
Range of Motion: Passively within normal limits in all extremities�
�
Lab Results�
Laboratory Data
01/28/25 07:16
01/28/25 07:16
Total Bilirubin 1.3 mg/dl (0.2-1.3) 01/26/25 10:04
AST 23 U/L (17-59) 01/26/25 10:04
ALT 20 U/L (0-50) 01/26/25 10:04
Alkaline Phosphatase 45 U/L (38-126) 01/26/25 10:04
Total Protein 7.0 g/dl (6.3-8.2) 01/26/25 10:04
Albumin 4.1 g/dl (3.5-5.0) 01/26/25 10:04
��
Diagnostic Results: as per HPI�
Brain MRI 01/27/25
No MRI evidence for an acute infarct. Chronic developmental findings, as detailed above.
Head CT 01/27/25
No evidence of acute intracranial abnormality.
Assessment�
49-year-old male with PMH notable for seizures associated with corpus callosum agenesis, presenting with ataxia, dizziness, nausea/vomiting. His symptoms have resolved.
Plan��
PM&R PT/OT to increase independence with ADLs, improve balance, coordination, endurance, strength, mobility, community reintegration, decreased burden of care on others and family education.�
�
Nausea/vomiting/dizziness: Resolved
? Vestibular neuritis per neurology: Making significant improvement, symptoms are resolving.
Seizures: Continue Keppra monitor seizures, seizure precautions�
�
Falls: Likely multifactorial�
-Vitamin D deficiency: weekly replacement Vitamin D2.�
-Check orthostatics.�
HLD: Statin�
Skin: monitor for pressure sores/rashes/lesions.�
Pain: acetaminophen as needed.�
Bowel: Colace and Senna, PRN bisacodyl.�
Bladder: Time void, PVRs, PRN straight cath.�
GI Prophylaxis: Pantoprazole�
DVT Prophylaxis: Mechanical, consider chemoprophylaxis
Pulmonary: Incentive spirometry�
Safety: Continue to reinforce assistance with all transfers.�
Code Status:� Full code
Dispo (date/plan/equipment needs): Home with family care.� Social history reviewed.�
Functional and Medical Goals: Modified Independent with ADL�s, ambulation, transfers�
Discharge Destination: Home�with home health care
Attending Statement:
I saw and examined the patient today. Reviewed care plan with patient, and resident physician Gary. I agree with the above subjective and and review of systems with adjustments as necessary. Above physical exam, and plan represents my findings and
plan. A total of 60 minutes were spent with the patient preparing for the evaluation, obtaining history, performing examination and evaluation, counseling, data review, case management, care coordination, order caller, and EMR documentation.
�
Summary of recommendations:�
- Discharge Destination: Home�
- Pending medical workup
- Patient works and is Mod I at baseline.
- Based on PT/OT eval yesterday, patient would be candidate for acute rehab. Based on family's input of patient having returned to baseline, and significant improvement with PT on 8/5 with supervision at mom by his mom, would suggest discharge to
home with home care.
Thank you for allowing me to care for your patient. Please contact me with any questions or concerns.�
��
[2025-01-28 15:40] VITALS: BP 139/91
[2025-01-28 16:19] VITALS: BP 133/90; PULSE 73
[2025-01-28] MEDS: LIPITOR 80 MG PO (18:12)
[2025-01-28 23:42] VITALS: BP 110/73
[2025-01-29] MEDS: VIMPAT 200 MG PO (07:26)
[2025-01-29] MEDS: ONFI 5 MG PO (07:26)
[2025-01-29] MEDS: LAMICTAL 200 MG PO (07:26)
[2025-01-29 08:21] VITALS: BP 121/85
[2025-01-29 08:34] LABS: Hematocrit 45.8 % (39.0-52.0); Hemoglobin 15.3 g/dL (13.0-18.0); Mean Corp Hgb Conc. 33.4 g/dL (33.0-37.0); Mean Corpuscular Volume 87.2 fL (80.0-94.0); Nucleated Red Blood Cells % 0 % (-); Platelet Count 257 10^3/uL (130-400); Red Cell Dist. Width 13.0 % (11.5-14.5)
[2025-01-29 08:57] LABS: Blood Urea Nitrogen 10 mg/dl (9-20); Calcium 8.9 mg/dl (8.4-10.2); Carbon Dioxide 23 mmol/L (22-30); Chloride 100 mmol/L (98-107); Estimated Creatinine Clearance > 125 ml/min; Glucose 92 mg/dl (70-99); Potassium 4.0 mmol/L (3.5-5.1); Sodium 129 mmol/L (135-145); eGFR > 60.00
--- NOTE | 2025-01-29 10:34 | W.PN.HOSP.TC ---
Today's Communication/Plan
-
Discharge
Assessment / Plan
Assessment / Plan
#Intractable dizziness
#Metabolic encephalopathy
#Hallucinations
-Unclear etiology; possibly related to CVA versus multifactorial with vertigo (left vestibular neuritis) and underlying intellectual disability
-CT head on arrival without any acute findings, no signs of ICH; MRI brain without contrast today negative for acute findings
-Neurology following, check lamotrigine levels which were elevated at 23; EEG negative
-Continue with meclizine as needed for vertigo
-Avoid unnecessary sedatives, monitor MSE
#Seizure disorder
#Corpus callosum agenesis
-Likely associated with history of corpus callosum agenesis
-Home regimen includes lacosamide and lamotrigine as well as clobazam
-Lamotrigine levels elevated, discontinued 50 mg daily dose; neurology increased clobazam
-See above for more detail
#Chronic SIADH
-Likely associated with corpus callosum agenesis (?) versus seizure medications
-Sodium trend here 131-129-132; anticipate baseline near 130
-Trend BMP, consider fluid restriction if worsening
Diet: Regular
DVT prophylaxis: SCDs
CODE STATUS: Full code
Anticipated Discharge: Today
Subjective/Interval History
-
Date of Service: January 29, 2025
Seen and examined at the bedside. No acute events reported overnight. AFVSS this morning.
Remains at baseline mental status, patient and mother enthusiastic about returning home today
EEG performed yesterday was unremarkable for seizure activity
Objective Data
-
Labs:
Laboratory Results
01/29/25
08:18
WBC 7.6
Hgb 15.3
Hct 45.8
Plt Count 257
Sodium 129 L
Potassium 4.0
Chloride 100
Carbon Dioxide 23
BUN 10
Creatinine 0.6 L
Glucose 92
Calcium 8.9
Vital Signs:
Vital Signs
Temp Pulse Resp BP Pulse Ox
98.4 F 89 16 121/85 98
01/29/25 08:21 01/29/25 08:21 01/29/25 08:21 01/29/25 08:21 01/29/25 08:21
I&O
01/28/25 01/29/25 01/30/25
06:59 06:59 06:59
Intake Total 960 / 960 480 / 480
Output Total 300 / 300
Balance 660 / 660 480 / 480
Review of Systems
-
History Source: Patient
All other systems: Reviewed and negative
Physical Exam
-
General: Well Nourished, No Apparent Distress and Appears Chronically Ill
HEENT: Normocephalic, Atraumatic and Moist Mucous Membranes
Respiratory: Clear to Auscultation and Non Labored Respirations; Negative Accessory Resp Muscle Use
Cardiac: Regular Rhythm and S1/S2; Negative Murmur, Rub or Gallop
GI: Soft, Nontender, Nondistended and Normal Bowel Sounds
Musculoskeletal: No Clubbing, No Cyanosis and No Edema
Skin: Warm and Dry; Negative Rash
Neuro: AO x 3 and Nonfocal/Grossly Intact; Negative Tremors
Psych: Calm
Data Reviewed
-
Labs: Labs Reviewed by me and Discussed with Patient
[2025-01-29 11:01] VITALS: BP 138/92; PULSE 80
[2025-01-29 11:02] VITALS: BP 138/92; PULSE 80
--- NOTE | 2025-01-29 11:44 | CM ---
Addendum entered by Mary Santiago 01/29/25 13:28:
Met with patient and his mother at the bedside; IMM benefit explained; form signed
Mother reported that patient's brother will provide transport home
Original Note:
PT reassessed patient; disposition recommendation is home health services.
CM spoke with patient's mother via phone; she is agreeable; agency options offered; preference is [facility]; referral sent/acknowledged by [facility] liaison via tiger text. Mother reported that her son will provide transport home this afternoon
Plan: Discharge to home today with [facility]
--- NOTE | 2025-01-29 12:54 | VNURNOTE ---
Home Health Liaison met with patient and mom at bedside to discuss [facility] nurse/therapy, visits, schedule and homebound status. They are agreeable and understand that visits at home will be 2-3 x per week to assess and teach medical management.
Per PT assessment, pt required min assist for ambulation. While liaison in room, pt stood up from bed and was noted to be unsteady. Liaison provided contact guard for safety. Liaison provided mom with list of agencies for additional assist.
Reached out to brother Gómez and explained above. P.T. to provide walker prior to DC. Brother will obtain urinal and commode. 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 Brother, patient, mom all aware that [facility] will contact them for start of care in
1-2 days after discharge from .
[facility] referral completed in [facility].
--- NOTE | 2025-01-29 15:39 | W.DCSUMMARY ---
Discharge Summary
Discharge Data
Date of Admission: 01/26/25
Date of Discharge: 01/29/25
Total time spent discharging patient (in min): 32
-
Pending Results: No
Hospital Course
Discharging Physician : Harry Glass DO
Disposition : Home care
Principal Discharge diagnosis :
Lamotrigine toxicity
Acute toxic metabolic encephalopathy
Vertigo/vestibular neuritis (left-sided)
Dyslipidemia
Ambulatory dysfunction
Chronic Discharge diagnosis :
Corpus callosities agenesis
Right-sided motor weakness/ataxia
Epilepsy
Chronic SIADH
Intellectual disability
Hospital Course :
49-year-old male that presented to the hospital with dizziness and ataxia. Was seen in the ED the day before with similar symptoms that improved after IV fluids and Zofran however symptoms recurred and he was brought back to the ED. Stated that
the room felt like he was spinning, noted to have right beating nystagmus at the time. Initial concern for vertiginous process such as left vestibular neuritis. Was started on meclizine supportively. Neurology consulted who recommended ruling out
cerebellar infarct and breakthrough seizure events. MRI brain was performed that was unremarkable for acute findings. EEG did not show any signs of seizure activity. Lamotrigine level was obtained on arrival, ultimately came back elevated at
23.8. Home daily dose of lamotrigine was decreased by 50 mg. Symptoms ultimately improved and patient returned to baseline mental status. Was recommended to follow-up OP after discharge with neurology for repeat lamotrigine levels. Of note, was
started on high intensity statin for dyslipidemia
Customer Records Division Supervisor :
Neurology: Jeff Heller MD
Important imaging findings :
MRI brain without contrast (01/27/2025)
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 Heterotopic vasquez matter in the left cerebral hemisphere, greatest
in the left frontal lobe. Stable deviation of the falx cerebri, again most pronounced along the anterior aspect of the falx. The ventricular system is unchanged in size. No extra-axial fluid collection. A few scattered T2/FLAIR hyperintense signal
foci in the white matter of the bilateral cerebral hemispheres are most compatible with mild chronic microangiopathic ischemia. No abnormal signal intensity on diffusion-weighted images. The cerebellar tonsils extend 7 mm below the level of the
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 No significant crowding/mass effect at the craniocervical junction. The vascular flow voids at the skull base are unremarkable, as far as visualized. Minor mucosal thickening of the
bilateral ethmoid sinuses. Mild fluid signal intensity in the left inferior mastoid air cells.
Electroencephalography (01/28/2025)
EEG INTERPRETATION: Minimally abnormal EEG for age due to diffuse bihemispheric slowing
CLINICAL CORRELATION: This study was suggestive of diffuse cortical dysfunction without focal abnormality. No seizures were recorded.
Procedure findings : N/A
Follow-up:
Follow-up with family doctor, should be seen in within 1 week of discharge from hospital
Schedule follow-up appointment with neurologist
Repeat lamotrigine level with PCP or neurologist
Rx for rolling walker provided
Discharge Plan
-
Patient Disposition: Home (Routine Discharge)
Discharge Diagnosis/Procedures: Altered mental status
Lamotrigine toxicity
Condition: Good
Diet: No restrictions
Activity: As tolerated
Driving Restrictions: Not until seen by your Dr
Bathing Restrictions: None
Blood Work: Follow-up with family doctor for BMP and CBC, repeat lamotrigine levels
Activity Restrictions/Additional Instructions:
After discharge from the hospital schedule follow-up with your family doctor and neurologist
Referral for neurology provided below if needed
Instructions: Lamotrigine
Referrals:
Eileen Barry PA [Family Provider, Family Practice]
Jeff Heller MD [Active, Neurology]
Referral Note: If needed
Additional Discharge Medication Instructions: Lamotrigine dose 200 mg twice daily (stop additional 50 mg tablet daily)
Clonazepam 5 mg twice daily
Continue lacosamide at 200 mg twice daily
Start atorvastatin 80 mg nightly
Prescriptions:
New
clobazam 10 mg Tablet
5 mg PO BID 30 Days Qty: 30 0RF
atorvastatin 80 mg Tablet
80 mg PO QPM 30 Days Qty: 30 0RF
Continued
meclizine 25 mg tablet
25 mg PO TID PRN (Reason: dizziness) Qty: 20 0RF
ondansetron 4 mg tablet,disintegrating
4 mg PO Q8H PRN (Reason: nausea and vomiting) 3 Days Qty: 10 0RF
lamotrigine 200 mg Tablet
200 mg PO BID
lacosamide 200 mg Tablet
200 mg PO BID
Discontinued
lamotrigine 50 mg Tablet,Disintegrating
50 mg PO DAILY
Sympazan 5 mg Film
5 mg PO DAILY
Discharge Orders:
Discharge Patient (As Directed); Ordered 01/29/25
Ordered By: Harry Glass
Discharge Date and Time
Discharge Date/Time: 01/29/25 15:14
Print Language: [id number]
== END 2025-01-29 15:14 | disposition home health service (06) | DRG 91 ==
LOC: 4 WEST ACU 14:18
PROVIDERS: Nurse Practitioner Family; Psychiatry & Neurology Neurology; ADMITTING PHYSICIAN Internal Medicine; ATTENDING PHYSICIAN Internal Medicine; CONSULT PHYSICIAN Physical Medicine & Rehabilitation; EMERGENCY PHYSICIAN Emergency Medicine; FAMILY PHYSICIAN Physician Assistant Medical; OTHER PHYSICIAN Psychiatry & Neurology Clinical Neurophysiology; OTHER PHYSICIAN Psychiatry & Neurology Psychiatry
DX: G92.8 Other toxic encephalopathy (principal); G93.5 Compression of brain; Q04.0 Congenital malformations of corpus callosum; E22.2 Syndrome of inappropriate secretion of antidiuretic hormone; G40.89 Other seizures; R47.01 Aphasia; R62.50 Unspecified lack of expected normal physiological development in childhood; T42.6X5A Adverse effect of other antiepileptic and sedative-hypnotic drugs, initial encounter; Y92.009 Unspecified place in unspecified non-institutional (private) residence as the place of occurrence of the external cause; R11.2 Nausea with vomiting, unspecified; R27.0 Ataxia, unspecified; F79 Unspecified intellectual disabilities; E78.5 Hyperlipidemia, unspecified; H55.09 Other forms of nystagmus; E55.9 Vitamin D deficiency, unspecified; H93.3X2 Disorders of left acoustic nerve; R44.1 Visual hallucinations; W19.XXXA Unspecified fall, initial encounter; Y93.9 Activity, unspecified; Y92.9 Unspecified place or not applicable; Z11.52 Encounter for screening for COVID-19
CPT/HCPCS: 70450; 70551; 80048; 80053; 80061; 80175; 81003; 81015; 82728; 82805; 82962; 83605; 83690; 83735; 85025; 87086; 87502; 87811; 92610; 93005; 95813; 96374; 96375; 97116; 97162; 97166; 97530; 97535; 99285; J1240